=== PATIENT | male | born 1930 | race Caucasian/White ===

== ENCOUNTER 2020-03-01 13:02 | Inpatient (IN) ==
[2020-03-01] MEDS ORDERED: SODIUM CHLORIDE 0.9% 1000ML 1,000 ML IV SCH (14:00)
--- NOTE | 2020-03-01 14:17 | XRay Report ---
XR chest 1V portable CLINICAL HISTORY: weakness dyspnea COMPARISON STUDY: 02/12/2018 FINDINGS: The bones soft tissues and hemidiaphragms are normal. The cardiomediastinal silhouette is n ormal. The lungs are clear. The pulmonary vasculature is normal. Bipolar cardiac pacemaker in good po sition IMPRESSION: No acute process. ACT 112: Negative or not required by law. The above report was generated using voice recognition software. It may contain grammatical, syntax or spelling errors. Electronically signed by: Prosper Guallpa M.D. 03/01/2020 2:16 PM
[2020-03-01 14:59] LABS: Basophils # (auto) 0.03 K/uL (0-0.2); Basophils % (auto) 0.5 %; Eosinophils # (auto) 0.09 K/uL (0-0.5); Eosinophils % (auto) 1.5 %; Hemoglobin 14.5 g/dL (14.0-18.0); Immature Granulocytes # (auto) 0.01 K/uL (0.00-0.02); Immature Granulocytes % (auto) 0.2 %; Lymphocytes % (auto) 20.1 %; Mean Corpuscular Hemoglobin 32.6 pg (25-34); Mean Corpuscular Hgb Conc 34.5 g/dL (32-36); Mean Corpuscular Volume 94.4 fL (80-100); Mean Platelet Volume 9.7 fL (7.4-10.4); Monocytes # (auto) 0.54 K/uL (0.11-0.59); Neutrophils # (auto) 4.11 K/uL (1.4-6.5); Neutrophils % (auto) 68.7 %; Platelet Count 162 K/uL (130-400); RDW Coefficient of Variation 13.6 % (11.5-14.5); RDW Standard Deviation 47.2 fL (36.4-46.3); Red Blood Count 4.45 M/uL (4.7-6.1); White Blood Count 5.98 K/uL (4.8-10.8)
--- NOTE | 2020-03-01 15:13 | CT Scan Report ---
CT head/brain wo con CT DOSE: 614.27 mGy.cm HISTORY: Mental status change AMS TECHNIQUE: Multiaxial CT images of the head were performed without the use of intravenous contrast. A dose lowering technique was utilized adhering to the principles of ALARA. Comparison: None. Findings: The paranasal sinuses and mastoid air cells are clear. The calvarium findings consistent wi th age-related atrophy and considerable chronic small vessel change and skull base are intact. The ve ntricles and sulci are within normal limits. There is no mass, hematoma, midline shift, or acute infa rct. Impression: No acute intracranial abnormality. Considerable chronic small vessel change and atrophy ACT 112: Negative or not required by law. The above report was generated using voice recognition software. It may contain grammatical, syntax or spelling errors. Electronically signed by: Prosper Guallpa M.D. 03/01/2020 3:12 PM
[2020-03-01 15:16] LABS: Albumin Level 3.7 gm/dl (3.4-5.0); BUN Creatinine Ratio 21.6 (10-20); Calcium 9.1 mg/dl (8.5-10.1); Creatinine Clr Calc Pharmacy 36.5 ml/min; Est GFR (African American) 67.4; Est GFR (Non-African American) 58.1; Magnesium 2.1 mg/dl (1.8-2.4); Potassium 3.6 mmol/L (3.5-5.1)
[2020-03-01 15:27] LABS: Bilirubin,Total 0.8 mg/dl (0.2-1); Globulin 3.8 gm/dl (2.5-4.0); Thyroid Stimulating Hormone 0.927 uIu/ml (0.300-4.500); Total Protein 7.5 gm/dl (6.4-8.2); Troponin I 0.02 ng/ml (0-0.045)
--- NOTE | 2020-03-01 17:50 | Emergency Department Note ---
Impression & Plan Heart palpitations, Weakness, Acute dehydration ED Provider Note NAME: DANIELA WILLIAM AGE: 89 SEX: M ARRIVES VIA: Walk-In INFORMANT: [Patient] ED PROVIDER(S): Daniela Resendiz MD CHIEF COMPLAINT: Palpitations PLAN: Disposition: Admitted Condition: [Good] MEDICAL DECISION MAKING: Patient presented to the emergency department because of palpitations. The caregiver also notes that he has not been doing well at home. He has trouble caring for himself and there is concerns about his ability to live alone. He has been losing weight. He has incontinence of stool. The patient denies any complaints. His physical examination revealed a benign abdomen. He had no fever. He was generally weak. He was hydrated. Laboratory testing was performed. CBC was unremarkable. Chemistry panel did reveal dehydration. Troponin was negative. Patient had his pacemaker interrogated. There was no ev idence of atrial or ventricular tachycardia. It was functioning normally per [place]. [employer]. cntr[employer]. The patient had a paced rhythm on ECG without acute ischemia. He had moderate amount of PVCs noted on cardiac monitoring. Chest x-ray and head CT were negative for acute process. Given the situation further management and monitoring in the hospital was felt to be appropriate. Consultation was made with internal medicine. The patient was evaluated in ER by Dr. Esparza for further management. Triage Nursing notes reviewed and agree them. [Additional history obtained from] patient's family. Vital Signs: reviewed and remarkable for [no significant abnormalities] Differential diagnosis: Infection, dehydration, metabolic abnormality, hypo/hyperglycemia, electrolyte disturbance, anemia, hypoxia, cardiac sources, intracerebral event, toxicologic, neurologic, as well as other pathologies. ER treatment provided: Normal saline hydration Diagnostics interpreted by me: ECG: Twelve-lead ECG reveals atrial paced rhythm with a rate of [address] Normal Q RS. Normal axis. No ST elevation or depression. Cardiac Monitoring:Cardiac monitoring ordered by me: The patient was placed on continuous cardiac monitoring and observed. It revealed a normal sinus rhythm at 72 beats per minute without ectopy or evidence of dysrhythmia. Consultation(s): [none] HPI: The patient is a 89 year old male who presents to the Emergency Room with complaints of palpitations. This started over the last few days and is intermittent. The patient also notes the following associated symptoms, generally weak. He has had poor appetite. Family notes he has had weight loss. He has some stool incontinence and has difficulty caring for himself. He does live alone.. The patient has found no relieving factors. Current pain is rated as 0/10. Patient does have history of pacemaker. Pt denies LOC, headache, fevers, chills, diaphoresis, visual changes, neck pain, chest pain, breathing difficulties, nausea, vomiting, abdominal pain, back pain, melena, hematochezia, urinary symptoms, numbness, lymphadenopathy, rash, or other complaints. ROS: See above HPI for pertinent positives & negatives. A total of [10] systems reviewed and were otherwise negative. PAST MEDICAL HISTORY:[See Below] coronary disease PAST SURGICAL HISTORY:[See Below]pacemaker FAMILY HISTORY:[See Below] SOCIAL HISTORY:[See Below] lives alone HOME MEDICATIONS:[See Below] ALLERGIES:[See Below] VITALS:[See Below] PHYSICAL EXAMINATION: GENERAL: Awake, alert, tired-appearing, in no distress HENT: Normocephalic, atraumatic. Oropharynx unremarkable. EYES: Normal conjunctiva. Sclera non-icteric. NECK: Inspection normal. Non-tender. Supple. No nuchal rigidity. FROM. No masses. RESPIRATORY: Clear to auscultation. No wheezes. No rales. Normal respiratory effort. CARDIAC: Normal rate. Normal rhythm. No murmurs. No rubs. Extremities warm and well perfused. Pulses equal. No JVD. GI: Soft, non-distended. No tenderness to palpation. No rebound or guarding. No masses. RECTAL: Deferred. MUSCULOSKELETAL: Atraumatic. Generalized muscular atrophy noted. Chest examination reveals no tenderness. Pacemaker in the left upper chest. The back is symmetrical on inspection without obvious abnormality. There is no CVA tenderness to palpation. No joint edema. LOWER EXTREMITIES: Calves are equal size bilaterally and non-tender. No edema. No discoloration. NEURO: Normal sensorium. No sensory or motor deficits noted. SKIN: No rash or jaundice noted. ED COURSE: [Critical Care:] [None] Daniela Resendiz MD Past Med/Surg History Surgical History (Updated 12/21/19 @ 11:51 by Suresh West MD) History of appendectomy Status post placement of cardiac pacemaker Family History (Updated 12/21/19 @ 11:56 by Suresh West MD) Father Asthma Hypertension Heart disease Denies family history of Ovarian cancer Prostate cancer Breast cancer Colorectal cancer Social History (Updated 12/21/19 @ 11:54 by Suresh West MD) Preferred Language: Ecuadorean Communication Ability: Effective Devops Architect Required: No Beliefs That Will Affect Care: None Current Living Situation: Alone current occupational status: employed Other Information That Helps Us Care for You: No Feels Safe at Home: Yes Safety Concerns: Feels Safe At This Time Smoking Status: Never smoker Hx Alcohol Use: No Hx Substance Use: No Childhood Exposure to Second-Hand Smoke: No Allergies Allergies Allergy/AdvReac Type Severity Reaction Status Date / Time Penicillins AdvReac Unknown VOMITING Unverified 03/01/20 14:41 Home Meds Home Medications Medication Instructions Recorded Confirmed No Known Home Medications 09/10/19 03/01/20 Results & Data (ED) Vital Signs Vital Signs - 24 hr 03/01/20 13:10 03/01/20 14:51 03/01/20 15:39 Temperature 36.4 C L Temperature Source Oral Pulse Rate 62 Pulse Rate [Apical] 61 Pulse Rhythm Regular Pulse Rhythm [Apical] Regular Pulse Strength Normal Pulse Strength [Apical] Normal Respiratory Rate 16 16 Respiratory Effort / Characteristics Non-Labored Spontaneous Non-Labored Spontaneous Respiratory Depth Normal Normal Respiratory Pattern Regular Regular Blood Pressure 175/84 H Blood Pressure [Left Arm] 148/84 H Blood Pressure Mean 114 Blood Pressure Mean [Left Arm] 105 Blood Pressure Position Sitting Blood Pressure Position [Left Arm] Lying Pulse Oximetry 97 97 97 Oxygen Delivery Method Room Air Room Air Room Air Sepsis Recent Fever Within 48 Hours No Sepsis New/Unexplained Change in Mental Status No Sepsis Action Taken by Nursing No Action Required Laboratory Data Result diagrams: 03/01/20 14:48 03/01/20 14:48 Lab Results 03/01/20 03/01/20 Range/Units 14:48 14:48 WBC 5.98 (4.8-10.8) K/uL RBC 4.45 L (4.7-6.1) M/uL Hgb 14.5 (14.0-18.0) g/dL Hct 42.0 (42-52) % MCV 94.4 (80-100) fL MCH 32.6 (25-34) pg MCHC 34.5 (32-36) g/dL RDW Std Deviation 47.2 H (36.4-46.3) fL RDW Coeff of [place] 13.6 (11.5-14.5) % Plt Count 162 (130-400) K/uL MPV 9.7 (7.4-10.4) fL Immature Gran % (Auto) 0.2 % Neut % (Auto) 68.7 % Lymph % (Auto) 20.1 % [place] % (Auto) 9.0 % Eos % (Auto) 1.5 % Baso % (Auto) 0.5 % Immature Gran # (Auto) 0.01 (0.00-0.02) K/uL Neut # (Auto) 4.11 (1.4-6.5) K/uL Lymph # (Auto) 1.20 (1.2-3.4) K/uL [place] # (Auto) 0.54 (0.11-0.59) K/uL Eos # (Auto) 0.09 (0-0.5) K/uL Baso # (Auto) 0.03 (0-0.2) K/uL Sodium 140 (136-145) mmol/L Potassium 3.6 (3.5-5.1) mmol/L Chloride 103 (98-107) mmol/L Carbon Dioxide 29 (21-32) mmol/L Anion Gap 8.0 (3-11) BUN 24 H (7-18) mg/dl Creatinine 1.13 (0.6-1.4) mg/dl Est Cr Clr Drug Dosing 36.5 ml/min Est GFR ( Amer) 67.4 Est GFR (Non-Af Amer) 58.1 BUN/Creatinine Ratio 21.6 H (10-20) Glucose 108 H (70-99) mg/dl Calcium 9.1 (8.5-10.1) mg/dl Magnesium 2.1 (1.8-2.4) mg/dl Total Bilirubin 0.8 (0.2-1) mg/dl AST 20 (15-37) U/L ALT 16 (12-78) U/L Alkaline Phosphatase 100 (45-117) U/L Troponin I 0.020 (0-0.045) ng/ml Total Protein 7.5 (6.4-8.2) gm/dl Albumin 3.7 (3.4-5.0) gm/dl Globulin 3.8 (2.5-4.0) gm/dl Albumin/Globulin Ratio 1.0 (0.9-2) TSH 0.927 (0.300-4.500) uIu/ml Administered Medications Sodium Chloride (Nss 1000ml) 1,000 mls @ 125 mls/hr IV .Q8H VASQUEZ Stop: 03/01/20 21:59 Last Admin: 03/01/20 14:53 Dose: 125 mls/hr Documented by: [id number] Discharge Plan Visit Data *Final* Discharge Date/Time: 03/01/20 19:27 Chief Complaint: Illness Stated Complaint: CHEST PAIN ED Provider: Daniela Resendiz Discharge Problem: Heart palpitations, Weakness, Acute dehydration Patient Disposition: Admitted As Inpatient Discharge Instructions Interventions: ED Discharge Assessment Last Done: 03/01/20 19:27
--- NOTE | 2020-03-01 18:33 | History & Physical Report ---
Date of Service March 01, 2020 Assessment & Plan (1) Palpitations: Main reason patient came to ER today Per verbal report from ER physician no abnormal runs of atrial or ventricular tachycardia on pacemaker check. Although have not independently reviewed this report. Repeat troponin in a.m. Monitor on slot floor person for associated presyncope (2) Acute dehydration: Increased urine specific gravity. No concern of infection from UA or history. continue slow IV fluids overnight (3) Failure to thrive: Generalized weakness, weight loss, loss of appetite, gradual decline over multiple months. Discussed potential extensive work-up for these nonspecific symptoms. Unlikely we would find anything reversible and given patient's preference on not taking medications we discussed investigating the following: TSH unremarkable B12 added to morning labs CT head concerning for vascular dementia - memory not fully assessed on admission Coronary artery disease - known severe disease, will repeat echocardiogram (although patient will be for medical management regardless, he also has a murmur on exam) History of gastritis with pyloric ulcer diagnosed on CT -no significant abdominal pain today on exam but given history of this and appetite loss. Start pantoprazole and monitor improvement in appetite. Dietitian evaluation SLT assessment for oropharyngeal dysphagia Orthostatics once every shift (4) Weakness: As above PT and OT evals (5) Oropharyngeal dysphagia: SLT assessment - can eat regular diet for now as no history of aspiration PNA (6) CAD (coronary artery disease): Restart on aspirin, defer statin given generalized weakness and decline, consider low-dose metoprolol if patient not orthostatic (7) Cardiac pacemaker: Placed initially for complete heart block however per previous electrophysiology notes and current EKG appears to be atrial pacing without the need for ventricular pacing. Pacemaker check performed although I do not see the report yet in the EHR (8) Benign prostatic hyperplasia: Significantly enlarged on prior imaging with chronic outlet obstruction changes noticed with bladder. At one point he was placed to have cystoscopy with urology due to bladder thickening most common side. I suspect he did not have this done due to the cost. No blood noted on urinalysis. No significant bladder outlet obstruction symptoms noted by patient. (9) Back pain: Unclear history and duration of this but appears to be having bowel incontinence and lower extremity weakness that may be due to this x-ray lumbar spine. (10) DVT prophylaxis: No SCDs due to falls risk No acute illness and patient is ambulatory therefore will defer chemical prophylaxis at this time Admission and Anticipated Discharge Date Admission Date: March 01, 2020 History of Present Illness Chief Complaint: Palpitations, generalized fatigue Primary Care Provider: Rudy Balderas MD Adiel Ames is an 89-year-old male who presents to the ER with intermittent heart palpitations since lasting for 15-20 beats. During these episodes he has associated lightheadedness but has never fainted. He also notes lightheadedness last night on standing although this has not previously occurred prior or since. He denies any chest pain or shortness of breath on walking. He lives alone, however Adenike his power of litigation attorney (?second cousin) brings him food although given his lack of appetite he does not need the majority of this. She feels he has not been drinking enough to keep hydrated. His memory has decreased but he is still relatively sharp. Orientated x3. He is very hard of hearing but notably worse by cerumen impaction in his right ear which she has not sought medical attention for. The patient generally does not like medications (feels they do more harm than good). 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 He had severe multi-vessel disease at that time and was started on usual medication for this which apparently he took for 6 months then decided to stop On further discussion with his power of litigation attorney, Adenike. She reports he has lost significant notes amount of weight in the last 6 months. He reports decreased appetite during this time. Occasional food getting stuck in the upper part of his throat. No odynophagia. He denies any change in bowel habit, melena, blood in stool, constipation, diarrhea, nausea, vomiting. Generalized fatigue however much worse over the past 1-2 weeks. Allergies Allergy/AdvReac Type Severity Reaction Status Date / Time Penicillins AdvReac Unknown VOMITING Unverified 03/01/20 14:41 Home Medications Home Medications Medication Instructions Recorded Confirmed Type No Known Home Medications 09/10/19 03/01/20 History Past Med/Surg History Medical History (Updated 03/02/20 @ 01:58 by Schuyler Esparza MD) Complete heart block NSTEMI (non-ST elevated myocardial infarction) 02/2018 Surgical History (Updated 12/21/19 @ 11:51 by Suresh West MD) History of appendectomy Status post placement of cardiac pacemaker Family History (Updated 12/21/19 @ 11:56 by Suresh West MD) Father Asthma Hypertension Heart disease Denies family history of Ovarian cancer Prostate cancer Breast cancer Colorectal cancer Social History (Updated 12/21/19 @ 11:54 by Suresh West MD) Preferred Language: [place]i Communication Ability: Effective Oracle Database Consultant Required: No Beliefs That Will Affect Care: None Current Living Situation: Alone current occupational status: employed Other Information That Helps Us Care for You: No Feels Safe at Home: Yes Safety Concerns: Feels Safe At This Time Smoking Status: Never smoker Hx Alcohol Use: No Hx Substance Use: No Childhood Exposure to Second-Hand Smoke: No Review of Systems Constitutional: + fatigue (Generalized worse over the last 2 weeks) and + weight loss (Gradual over 6 months); no fever and no chills Eyes: no problem reported Ear, Nose, Mouth, Throat: + hearing loss (Right ear with associated fullness) Respiratory: + cough (Occasional after eating, none currently); no chest congestion, no hemoptysis and no wheezing Cardiovascular: + palpitations (As per HPI) and + lightheadedness (As per HPI); no chest pain, no chest pain with activity, no dyspnea, no dyspnea at rest, no orthopnea, no paroxysmal nocturnal dyspnea, no syncope, no edema and no claudication Gastrointestinal: + early satiety and + fecal incontinence (New over the last 6 months); no abdominal pain, no belching, no heartburn, no nausea, no vomiting, no change in bowel habits, no constipation, no blood in stools and no melena Genitourinary: + urinary incontinence (Occasional) and + nocturia (X2/night); no difficulty urinating, no urinary frequency, no urinary hesitancy, no decreased urination, no hematuria, no flank pain and no urinary urgency Musculoskeletal: + back pain (Low central back, unclear origin, duration, frequency) Integumentary: no problem reported Neurologic: + gait abnormality, + unsteadiness and + generalized weakness; no falls (No recurrent), no loss of sensation, no lack of coordination and no headache(s) Psychiatric: no problem reported Endocrine: no problem reported Hematologic / Lymphatic: no problem reported Allergy / Immunological: no problem reported Physical Exam Constitutional: well developed and + frail appearing; + not well nourished and no acute distress Eyes: PERRL, conjunctivae normal, anicteric sclerae ENMT: Ears: + hearing impairment (R > L) and + unable to visualize TM (cerumen impaction in right ear) Mouth: + dry oral mucous membranes Neck: trachea midline, no thyromegaly Respiratory: normal respiratory effort, lungs clear to auscultation Cardiovascular: Rate/Rhythm: regular rate and regular rhythm Heart Sounds: + murmur Vessels: no JVD Extremities: normal capillary refill; no calf tenderness and no edema Gastrointestinal (Abdomen): normal bowel sounds, soft, nontender, no hepatosplenomegaly Musculoskeletal: no cyanosis or clubbing, extremities motor strength 5/5 Skin: no rashes, warm and dry Neurologic: moves all extremities and awake; no focal motor deficits and not confused Motor/Sensory: no tremor, no pronator drift and no sensory deficit Cranial Nerves: PERRL, EOM intact bilaterally, able to rotate head bilaterally, able to elevate shoulders bilaterally, no nystagmus and symmetric palate elevation; + hearing impairment Psychiatric: Orientation: alert and oriented x 3 Results & Data Results & Data ([facility]) Vital Signs (Past 12 Hours) Vital Signs Temp Pulse Pulse Resp BP BP Pulse Ox 03/01/20 15:39 61 16 148/84 H 97 03/01/20 14:51 97 03/01/20 13:10 36.4 C L 62 16 175/84 H 97 Diagnostic Findings XR chest 1V portable IMPRESSION: No acute process. CT head/brain wo con Impression: No acute intracranial abnormality. Considerable chronic small vessel change and atrophy ECG Indication: palpitations Rate (beats per minute): 71 Rhythm: other (Atrial paced) Findings: + 1st degree AV block Comparison ECG Date: from (February 13, 2018) Change: the following changes noted (No longer ventricular paced) Code Status & VTE Plan Code Status DNR/DNI as per patient wishes VTE Prophylaxis Plan VTE Prophylaxis will be ordered: No Reason for no VTE drug order: Treatment not indicated Reason for no VTE mechanical prophylaxis: Treatment not indicated PG Care Time/CCT Total # of Minutes Spent Total Time Spent with Patient: Total time spent is greater than 50% in coordination of care (as documented) at patient's floor/unit and/or counseling patient: Coding Level of Care Code 86234 Initial Inpt Care Lvl 3 Diagnoses Palpitations R00.2 Acute dehydration E86.0 Failure to thrive Weakness R53.1 Oropharyngeal dysphagia R13.12 CAD (coronary artery disease) I25.10 Cardiac pacemaker Z95.0 Benign prostatic hyperplasia N40.0 Back pain M54.9 DVT prophylaxis Z29.9
[2020-03-01 19:16] LABS: Appearance Urine Clear (Clear); Bilirubin Urine Negative (Negative); Blood Urine Negative (Negative); Color Urine Dark Yellow; Glucose Urine UA Negative (Negative); Ketones Urine Trace (Negative); Leukocyte Esterase Urine Negative (Negative); Nitrite Urine Negative (Negative); Protein Urine Negative (Negative); Specific Gravity Urine 1.031 (1.000-1.030); Urobilinogen Urine Negative (Negative)
[2020-03-01] MEDS: HEPARIN SOD 5,000 UNIT/0.5 ML VIAL SQ SCH (22:09)
[2020-03-02] MEDS ORDERED: LACTATED RINGER'S 1,000 ML IV SCH (01:15)
--- NOTE | 2020-03-02 06:58 | XRay Report ---
XR lumbar spine min 4V routine HISTORY: Pain L5 central back pain COMPARISON: None. FINDINGS: There is no fracture. Mild scoliosis. Significant degenerative disc changes throughout. No evidence for compression deformity. IMPRESSION: Scoliosis. Considerable degenerative disc changes throughout. No acute process. ACT 112: Negative or not required by law. The above report was generated using voice recognition software. It may contain grammatical, syntax or spelling errors. Electronically signed by: Prosper Guallpa M.D. 03/02/2020 6:57 AM
[2020-03-02 08:06] LABS: BUN Creatinine Ratio 19.5 (10-20); Blood Urea Nitrogen 16 mg/dl (7-18); Calcium 8.5 mg/dl (8.5-10.1); Carbon Dioxide 27 mmol/L (21-32); Chloride 106 mmol/L (98-107); Creatinine Clr Calc Pharmacy 49.2 ml/min; Est GFR (African American) 91.7; Est GFR (Non-African American) 79.1; Glucose 80 mg/dl (70-99); Potassium 3.4 mmol/L (3.5-5.1); Sodium 139 mmol/L (136-145)
[2020-03-02 08:13] LABS: Troponin I < 0.015 ng/ml (0-0.045)
[2020-03-02] MEDS: HEPARIN SOD 5,000 UNIT/0.5 ML VIAL SQ SCH ×2 (08:32→20:59)
[2020-03-02] MEDS: ASPIRIN 81 MG ECTAB PO SCH (08:32)
[2020-03-02] MEDS: PANTOprazole 40 MG TAB PO SCH (08:33)
[2020-03-02] MEDS: CARBAMIDE PEROXIDE 6.5% 15 ML BTL OTR SCH ×3 (09:28→21:01)
--- NOTE | 2020-03-02 13:30 | XCELERA ---
[id number]
--- NOTE | 2020-03-02 14:24 | Electrocardiogram Report ---
Test Reason : Blood Pressure : / mmHG Vent. Rate : 071 BPM Atrial Rate : 071 BPM P-R Int : 220 ms QRS Dur : 084 ms QT Int : 392 ms P-R-T Axes : -28 -16 -54 degrees QTc Int : 425 ms Atrial-paced rhythm with prolonged AV conduction Nonspecific T wave abnormality Abnormal ECG When compared with ECG of 13-FEB-2018 11:27, Electronic atrial pacemaker has replaced Electronic ventricular pacemaker Confirmed by Frank Blankenship ([id number]) on 03/02/2020 2:24:39 PM Referred By: REFERRED SELF Confirmed By:Frank Blankenship
[2020-03-02] MEDS ORDERED: POTASSIUM CHLORIDE 10 MEQ TABCR PO STA (16:09)
--- NOTE | 2020-03-02 21:20 | Hospitalist Progress Note ---
Date of Service March 02, 2020 Assessment & Plan (1) Palpitations: Main reason patient came to ER today Per verbal report from ER physician no abnormal runs of atrial or ventricular tachycardia on pacemaker check. Although have not independently reviewed this report. trop negative. Monitor on tubing assembler for associated presyncope (2) Acute dehydration: improved after IVF. (3) Failure to thrive: Generalized weakness, weight loss, loss of appetite, gradual decline over multiple months. Discussed potential extensive work-up for these nonspecific symptoms. Unlikely we would find anything reversible and given patient's preference on not taking medications we discussed investigating the following: TSH unremarkable B12 added to morning labs CT head concerning for vascular dementia - memory not fully assessed on admission Coronary artery disease - known severe disease, will repeat echocardiogram (although patient will be for medical management regardless, he also has a murmur on exam) History of gastritis with pyloric ulcer diagnosed on CT -no significant abdominal pain today on exam but given history of this and appetite loss. Start pantoprazole and monitor improvement in appetite. Dietitian evaluation SLT assessment for oropharyngeal dysphagia Orthostatics once every shift On day 2: given that he states food gets stuck in his throat, will obtain a barium swallow, await input from speech may need a video swallow. may also consider a GI consult (4) Weakness: As above PT and OT evals (5) Oropharyngeal dysphagia: SLT assessment - can eat regular diet for now as no history of aspiration PNA (6) CAD (coronary artery disease): Restart on aspirin, defer statin given generalized weakness and decline, consider low-dose metoprolol if patient not orthostatic (7) Cardiac pacemaker: Placed initially for complete heart block however per previous electrophysiology notes and current EKG appears to be atrial pacing without the need for ventricular pacing. Pacemaker check performed although I do not see the report yet in the EHR (8) Benign prostatic hyperplasia: Significantly enlarged on prior imaging with chronic outlet obstruction changes noticed with bladder. At one point he was placed to have cystoscopy with urology due to bladder thickening most common side. I suspect he did not have this done due to the cost. No blood noted on urinalysis. No significant bladder outlet obstruction symptoms noted by patient. (9) Back pain: Unclear history and duration of this but appears to be having bowel inc ontinence and lower extremity weakness that may be due to this x-ray lumbar spine. (10) DVT prophylaxis: No SCDs due to falls risk No acute illness and patient is ambulatory therefore will defer chemical prophylaxis at this time Admission and Anticipated Discharge Date Admission Date: March 01, 2020 Subjective 89 yo male reports feeling well. He is hard of hearing. hE STATES THOUGH THT HE HAS LOST WEIGHT over the course of the past few months. He states food gts stuck on his throat. He reports he feels less weak today. Review of Systems Constitutional: + fatigue (Generalized worse over the last 2 weeks) and + weight loss (Gradual over 6 months); no fever and no chills Ear, Nose, Mouth, Throat: + hearing loss (Right ear with associated fullness) Respiratory: + cough (Occasional after eating, none currently); no chest congestion, no hemoptysis and no wheezing Cardiovascular: + palpitations (As per HPI) and + lightheadedness (As per HPI); no chest pain, no chest pain with activity, no dyspnea, no dyspnea at rest, no orthopnea, no paroxysmal nocturnal dyspnea, no syncope, no edema and no claudication Gastrointestinal: + early satiety and + fecal incontinence (New over the last 6 months); no abdominal pain, no belching, no heartburn, no nausea, no vomiting, no change in bowel habits, no constipation, no blood in stools and no melena Genitourinary: + urinary incontinence (Occasional) and + nocturia (X2/night); no difficulty urinating, no urinary frequency, no urinary hesitancy, no decreased urination, no hematuria, no flank pain and no urinary urgency Musculoskeletal: + back pain (Low central back, unclear origin, duration, frequency) Neurologic: + gait abnormality, + unsteadiness and + generalized weakness; no falls (No recurrent), no loss of sensation, no lack of coordination and no head ache(s) Physical Exam Physical Exam: Constitutional: well developed and + frail appearing; no acute distress Eyes: PERRL, conjunctivae normal, anicteric sclerae ENMT: Ears: + hearing impairment (R > L) and + unable to visualize TM (cerumen impaction in right ear) Mouth: + dry oral mucous membranes Neck: trachea midline, no thyromegaly Respiratory: normal respiratory effort, lungs clear to auscultation Cardiovascular: Rate/Rhythm: regular rate and regular rhythm Heart Sounds: + murmur Vessels: no JVD Extremities: normal capillary refill; no calf tenderness and no edema Gastrointestinal (Abdomen): normal bowel sounds, soft, nontender, no hepatosplenomegaly Musculoskeletal: no cyanosis or clubbing, extremities motor strength 5/5 Skin: no rashes, warm and dry Neurologic: moves all extremities and awake; no focal motor deficits and not confused Motor/Sensory: no tremor, no pronator drift and no sensory deficit Cranial Nerves: PERRL, EOM intact bilaterally, able to rotate head bilaterally, able to elevate shoulders bilaterally, no nystagmus and symmetric palate elevation; + hearing impairment Psychiatric: Orientation: alert and oriented x 3 Results & Data Results & Data ([facility]) Vital Signs (Past 12 Hours) Vital Signs Temp Pulse Pulse Resp BP BP Pulse Ox 03/02/20 20:14 36.7 C 66 16 146/75 H 96 03/02/20 17:27 60 03/02/20 15:42 36.6 C 60 14 144/71 H 95 03/02/20 11:59 36.8 C 60 16 119/72 94 PG Care Time/CCT Total # of Minutes Spent Total Time Spent with Patient: Total time spent is greater than 50% in coordination of care (as documented) at patient's floor/unit and/or counseling patient: Coding Level of Care Code 14635 Subseq Obs Care Lvl 3 Diagnoses Palpitations R00.2 Acute dehydration E86.0 Failure to thrive Weakness R53.1 Oropharyngeal dysphagia R13.12 CAD (coronary artery disease) I25.10 Cardiac pacemaker Z95.0 Benign prostatic hyperplasia N40.0 Back pain M54.9 DVT prophylaxis Z29.9 Time Spent (min) 35
[2020-03-03] MEDS: PANTOprazole 40 MG TAB PO SCH (08:05)
[2020-03-03] MEDS: CARBAMIDE PEROXIDE 6.5% 15 ML BTL OTR SCH ×3 (08:05→21:05)
[2020-03-03] MEDS: HEPARIN SOD 5,000 UNIT/0.5 ML VIAL SQ SCH ×2 (08:05→21:05)
[2020-03-03] MEDS: ASPIRIN 81 MG ECTAB PO SCH (08:05)
--- NOTE | 2020-03-03 11:55 | Fluoroscopy Report ---
FL barium swallow CLINICAL HISTORY: food getting stuck COMPARISON STUDY: None. FINDINGS: Total fluoroscopy time is 0.2 minutes. 9 fluoroscopic spot images submitted. The patient as pirated barium on the initial swallow. Therefore, the study was terminated. IMPRESSION: The patient aspirated barium on the initial swallow. Therefore, the study was terminated . ACT 112: Negative or not required by law. Electronically signed by: Yanick Huerta M.D. 03/03/2020 11:54 AM
--- NOTE | 2020-03-03 12:23 | Fluoroscopy Report ---
FL video swallow HISTORY: aspirated during a Barium Swallow TECHNIQUE: Video fluoroscopic evaluation of swallowing was performed in the AP and lateral projection s by the speech pathology staff. The patient is fed nectar-thick and thin liquid barium, and barium p udding. FLUOROSCOPY TIME: 2.4 minutes. A cine loop submitted. COMPARISON STUDY: None. FINDINGS: Overall poor pharyngeal constriction resulting in multiple episodes of incomplete epiglotti c deflection. This likely accounts for the multiple episodes of silent aspiration seen throughout the examination. IMPRESSION: 1. Overall, poor pharyngeal constriction resulting in multiple episodes of silent aspiration. 2. Please see the speech pathologist report for detailed findings and recommendations. ACT 112: Negative or not required by law. Electronically signed by: Yanick Huerta M.D. 03/03/2020 12:21 PM
--- NOTE | 2020-03-03 13:41 | Hospitalist Progress Note ---
Date of Service March 03, 2020 Assessment & Plan (1) Failure to thrive: Generalized weakness, weight loss, loss of appetite, gradual decline over multiple months. * TSH normal * B12 normal * Cortisol normal * CT head shows vascular dementia. - Likely due to worsening memory issues. No official dementia diagnosis, but very likely to be the case. - Psych consult for competency as his living situation is deteriorating, and he refuses further help. (2) Oropharyngeal dysphagia: SLT assessment and video swallow showed widespread aspiration. - Permissive aspiration - Continue PPI (3) Acute dehydration: Improved after IVF. Seems to be larger issue with MILAGROS Jeong reporting that his trailer doesn't have running water and he has to pump it. - Home issues as above (4) Palpitations: Main reason patient came to ER. No abnormal runs of atrial or ventricular tachycardia on pacemaker check. Trop negative. - Monitor, though patient no longer reporting this symptom to me. 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 Current EKG appears to be atrial pacing without the need for ventricular pacing. - Monitor (6) CAD (coronary artery disease): Has regularly stopped medications as he feels they do no good. - Restarted aspirin - Defer statin & beta-angel for patient preference (7) Benign prostatic hyperplasia: Significantly enlarged on prior imaging with chronic outlet obstruction changes noticed with bladder. At one point, he was planned to have cystoscopy with urology due to bladder thickening most common side. - No significant bladder outlet obstruction symptoms noted by patient. - Monitor (8) Back pain: Unclear history and duration of this but appears to be having bowel incontinence and lower extremity weakness that may be due to this. - X-ray lumbar spine on 03/01 showed "considerable degenerative disc changes throughout, but no acute process." - Monitor (9) DVT prophylaxis: Heparin 5000 units Q12h Admission and Anticipated Discharge Date Admission Date: March 01, 2020 Subjective In no distress today. Says he has no palpitations, has no other known issues. Reports no fevers/chills, chest pain, shortness of breath, abdominal pain, nausea, or vomiting. Physical Exam Constitutional: WD/WN, vitals as above Eyes: EOM intact bilaterally; no conjunctival abnormality ENMT: external ear and nose normal, oropharynx normal Neck: trachea midline, no thyromegaly normal visual inspection Respiratory: normal respiratory effort, lungs clear to auscultation no respiratory distress Cardiovascular: RRR, no murmur, no edema Gastrointestinal (Abdomen): Inspection/Auscultation: abdomen normal to inspection; abdomen not distended Musculoskeletal: no cyanosis or clubbing, extremities motor strength 5/5 Skin: no rashes, warm and dry Neurologic: moves all extremities and awake Psychiatric: Orientation: alert, oriented to person and cooperative Results & Data Results & Data ([facility]) Vital Signs (Past 12 Hours) Vital Signs Temp Pulse Pulse Resp BP BP Pulse Ox 03/03/20 11:40 36.8 C 84 18 153/92 H 93 03/03/20 08:00 64 03/03/20 07:36 36.5 C 57 L 16 161/76 H 95 03/03/20 04:54 36.6 C 60 20 137/75 94 03/03/20 02:23 63 PG Care Time/CCT Total # of Minutes Spent Total Time Spent with Patient: Total time spent is greater than 50% in coordination of care (as documented) at patient's floor/unit and/or counseling patient: Coding Level of Care Code 05915 Subseq Hosp Care Lvl 3 Diagnoses Failure to thrive Oropharyngeal dysphagia R13.12 Acute dehydration E86.0 Palpitations R00.2 Cardiac pacemaker Z95.0 CAD (coronary artery disease) I25.10 Benign prostatic hyperplasia N40.0 Back pain M54.9 DVT prophylaxis Z29.9
[2020-03-04 07:06] LABS: Hematocrit (blood only) 41.3 % (42-52); Hemoglobin 13.8 g/dL (14.0-18.0); Mean Corpuscular Hemoglobin 32.1 pg (25-34); Mean Corpuscular Hgb Conc 33.4 g/dL (32-36); Mean Platelet Volume 10.3 fL (7.4-10.4); Platelet Count 171 K/uL (130-400); RDW Coefficient of Variation 13.8 % (11.5-14.5); RDW Standard Deviation 48.6 fL (36.4-46.3)
[2020-03-04] MEDS: HEPARIN SOD 5,000 UNIT/0.5 ML VIAL SQ SCH ×2 (08:56→20:54)
[2020-03-04] MEDS: ASPIRIN 81 MG ECTAB PO SCH (08:56)
[2020-03-04] MEDS: PANTOprazole 40 MG TAB PO SCH (08:56)
[2020-03-04] MEDS: CARBAMIDE PEROXIDE 6.5% 15 ML BTL OTR SCH ×3 (08:58→20:55)
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
--- NOTE | 2020-03-04 14:34 | Hospitalist Progress Note ---
Date of Service March 04, 2020 Assessment & Plan (1) Failure to thrive: Generalized weakness, weight loss, loss of appetite, gradual decline over multiple months. * TSH normal * B12 normal * Cortisol normal * CT head shows vascular dementia. - Likely due to worsening memory issues. No official dementia diagnosis, but very likely to be the case. - Psych consulted -> They did not weigh in as he is agreeable to being placed in rehab for now. - Stable today. (2) Oropharyngeal dysphagia: SLT assessment and video swallow showed widespread aspiration. - Permissive aspiration - Continue PPI (3) Acute dehydration: Improved after IVF. Seems to be larger issue with MILAGROS Jeong reporting that his trailer doesn't have running water and he has to pump it. - Home issues as above (4) Palpitations: Main reason patient came to ER. No abnormal runs of atrial or ventricular tachycardia on pacemaker check. Trop negative. - Monitor, though patient no longer reporting this symptom to me. 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 Current EKG appears to be atrial pacing without the need for ventricular pacing. - Monitor (6) CAD (coronary artery disease): Has regularly stopped medications as he feels they do no good. - Restarted aspirin - Defer statin & beta-angel for patient preference (7) Benign prostatic hyperplasia: Significantly enlarged on prior imaging with chronic outlet obstruction changes noticed with bladder. At one point, he was planned to have cystoscopy with urology due to bladder thickening most common side. - No significant bladder outlet obstruction symptoms noted by patient. - Monitor (8) Back pain: Unclear history and duration of this but appears to be having bowel inc ontinence and lower extremity weakness that may be due to this. - X-ray lumbar spine on 03/01 showed "considerable degenerative disc changes throughout, but no acute process." - Monitor (9) DVT prophylaxis: Heparin 5000 units Q12h Admission and Anticipated Discharge Date Admission Date: March 03, 2020 Subjective No complaints today. He is fairly vague when asked about any concerns at home, and doesn't really state that he has any issues with safety, but cannot also give any plans for what he will do at home for safety. Reports no fevers/chills, chest pain, shortness of breath, abdominal pain, nausea, or vomiting. Physical Exam Constitutional: WD/WN, vitals as above Eyes: EOM intact bilaterally; no conjunctival abnormality ENMT: external ear and nose normal, oropharynx normal Neck: trachea midline, no thyromegaly normal visual inspection Respiratory: normal respiratory effort, lungs clear to auscultation no respiratory distress Cardiovascular: RRR, no murmur, no edema Gastrointestinal (Abdomen): Inspection/Auscultation: abdomen normal to inspection; abdomen not distended Musculoskeletal: no cyanosis or clubbing, extremities motor strength 5/5 Skin: no rashes, warm and dry Neurologic: moves all extremities and awake Psychiatric: Orientation: alert, oriented to person and cooperative Results & Data Results & Data ([facility]) Vital Signs (Past 12 Hours) Vital Signs Temp Pulse Pulse Pulse Resp BP BP 03/04/20 11:30 36.4 C L 68 20 136/89 03/04/20 09:00 60 03/04/20 07:19 36.3 C L 60 18 160/74 H 03/04/20 02:59 36.3 C L 60 18 156/82 H Pulse Ox 03/04/20 11:30 98 03/04/20 09:00 03/04/20 07:19 98 03/04/20 02:59 95 PG Care Time/CCT Total # of Minutes Spent Total Time Spent with Patient: Total time spent is greater than 50% in coordination of care (as documented) at patient's floor/unit and/or counseling patient: Coding Level of Care Code 79874 Subseq Hosp Care Lvl 2 Diagnoses Failure to thrive Oropharyngeal dysphagia R13.12 Acute dehydration E86.0 Palpitations R00.2 Cardiac pacemaker Z95.0 CAD (coronary artery disease) I25.10 Benign prostatic hyperplasia N40.0 Back pain M54.9 DVT prophylaxis Z29.9
[2020-03-05] MEDS: PANTOprazole 40 MG TAB PO SCH (08:27)
[2020-03-05] MEDS: ASPIRIN 81 MG ECTAB PO SCH (08:27)
[2020-03-05] MEDS: HEPARIN SOD 5,000 UNIT/0.5 ML VIAL SQ SCH ×2 (08:28→20:33)
[2020-03-05] MEDS: CARBAMIDE PEROXIDE 6.5% 15 ML BTL OTR SCH ×3 (08:28→20:33)
--- NOTE | 2020-03-05 17:46 | Hospitalist Progress Note ---
Date of Service March 05, 2020 Assessment & Plan (1) Failure to thrive: Generalized weakness, weight loss, loss of appetite, gradual decline over multiple months. * TSH normal * B12 normal * Cortisol normal * CT head shows vascular dementia. - Likely due to worsening memory issues. No official dementia diagnosis, but very likely to be the case. - Psych consulted -> They did not weigh in as he is agreeable to being placed in rehab for now. - Stable today. Still very pleasant and no agitation or concerns about going home today. (2) Oropharyngeal dysphagia: SLT assessment and video swallow showed widespread aspiration. - Permissive aspiration - Continue PPI (3) Acute dehydration: Improved after IVF. Seems to be larger issue with MILAGROS Jeong reporting that his trailer doesn't have running water and he has to pump it. - Home issues as above (4) Palpitations: Main reason patient came to ER. No abnormal runs of atrial or ventricular tachycardia on pacemaker check. Trop negative. - Monitor, though patient no longer reporting this symptom to me. 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 Current EKG appears to be atrial pacing without the need for ventricular pacing. - Monitor (6) CAD (coronary artery disease): Has regularly stopped medications as he feels they do no good. - Restarted aspirin - Defer statin & beta-angel for patient preference (7) Benign prostatic hyperplasia: Significantly enlarged on prior imaging with chronic outlet obstruction changes noticed with bladder. At one point, he was planned to have cystoscopy with urology due to bladder thickening most common side. - No significant bladder outlet obstruction symptoms noted by patient. - Monitor (8) Back pain: Unclear history and duration of this but appears to be having bowel incontinence and lower extremity weakness that may be due to this. - X-ray lumbar spine on 03/01 showed "considerable degenerative disc changes throughout, but no acute process." - Monitor (9) DVT prophylaxis: Heparin 5000 units Q12h Admission and Anticipated Discharge Date Admission Date: March 03, 2020 Subjective No complaints today. Feeling ok with no chest pain. Reports no fevers/chills, chest pain, shortness of breath, abdominal pain, nausea, or vomiting. Physical Exam Constitutional: WD/WN, vitals as above Eyes: EOM intact bilaterally; no conjunctival abnormality ENMT: external ear and nose normal, oropharynx normal Neck: trachea midline, no thyromegaly normal visual inspection Respiratory: normal respiratory effort, lungs clear to auscultation no respiratory distress Cardiovascular: RRR, no murmur, no edema Gastrointestinal (Abdomen): Inspection/Auscultation: abdomen normal to inspection; abdomen not distended Musculoskeletal: no cyanosis or clubbing, extremities motor strength 5/5 Skin: no rashes, warm and dry Neurologic: moves all extremities and awake Psychiatric: Orientation: alert, oriented to person and cooperative Results & Data Results & Data ([facility]) Vital Signs (Past 12 Hours) Vital Signs Temp Pulse Pulse Resp BP BP Pulse Ox 03/05/20 15:08 36.3 C L 64 20 146/75 H 94 03/05/20 14:49 65 03/05/20 11:45 36.4 C L 68 16 111/67 92 03/05/20 07:23 60 03/05/20 07:15 36.4 C L 60 20 132/77 94 PG Care Time/CCT Total # of Minutes Spent Total Time Spent with Patient: Total time spent is greater than 50% in coordination of care (as documented) at patient's floor/unit and/or counseling patient: Coding Level of Care Code 16788 Subseq Hosp Care Lvl 2 Diagnoses Failure to thrive Oropharyngeal dysphagia R13.12 Acute dehydration E86.0 Palpitations R00.2 Cardiac pacemaker Z95.0 CAD (coronary artery disease) I25.10 Benign prostatic hyperplasia N40.0 Back pain M54.9 DVT prophylaxis Z29.9
[2020-03-06] MEDS: PANTOprazole 40 MG TAB PO SCH (08:56)
[2020-03-06] MEDS: ASPIRIN 81 MG ECTAB PO SCH (08:56)
[2020-03-06] MEDS: HEPARIN SOD 5,000 UNIT/0.5 ML VIAL SQ SCH ×2 (08:56→20:50)
--- NOTE | 2020-03-06 15:40 | Hospitalist Progress Note ---
Date of Service March 06, 2020 Assessment & Plan (1) Failure to thrive: Generalized weakness, weight loss, loss of appetite, gradual decline over multiple months. * TSH normal * B12 normal * Cortisol normal * CT head shows vascular dementia. - Likely due to worsening memory issues. No official dementia diagnosis, but very likely to be the case. - Psych consulted -> They did not weigh in as he is agreeable to being placed in rehab for now. - Stable today. Still very pleasant and no agitation. Still somewhat tired and sleeps much of the day. (2) Oropharyngeal dysphagia: SLT assessment and video swallow showed widespread aspiration. - Permissive aspiration - Continue PPI (3) Acute dehydration: Improved after IVF. Seems to be larger issue with MILAGROS Jeong reporting that his trailer doesn't have running water and he has to pump it. - Home issues as above (4) Palpitations: Main reason patient came to ER. No abnormal runs of atrial or ventricular tachycardia on pacemaker check. Trop negative. - Monitor, though patient no longer reporting this symptom to me. 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 Current EKG appears to be atrial pacing without the need for ventricular pacing. - Monitor (6) CAD (coronary artery disease): Has regularly stopped medications as he feels they do no good. - Restarted aspirin - Defer statin & beta-angel for patient preference (7) Benign prostatic hyperplasia: Significantly enlarged on prior imaging with chronic outlet obstruction changes noticed with bladder. At one point, he was planned to have cystoscopy with urology due to bladder thickening most common side. - No significant bladder outlet obstruction symptoms noted by patient. - Monitor (8) Back pain: Unclear history and duration of this but appears to be having bowel incontinence and lower extremity weakness that may be due to this. - X-ray lumbar spine on 03/01 showed "considerable degenerative disc changes throughout, but no acute process." - Monitor (9) DVT prophylaxis: Heparin 5000 units Q12h Admission and Anticipated Discharge Date Admission Date: March 03, 2020 Subjective No complaints today. No major concerns overall. He is not cleaning himself much overnight per nursing. Reports no fevers/chills, chest pain, shortness of breath, abdominal pain, nausea, or vomiting. Physical Exam Constitutional: WD/WN, vitals as above Eyes: EOM intact bilaterally; no conjunctival abnormality ENMT: external ear and nose normal, oropharynx normal Neck: trachea midline, no thyromegaly normal visual inspection Respiratory: normal respiratory effort, lungs clear to auscultation no respiratory distress Cardiovascular: RRR, no murmur, no edema Gastrointestinal (Abdomen): Inspection/Auscultation: abdomen normal to inspection; abdomen not distended Musculoskeletal: no cyanosis or clubbing, extremities motor strength 5/5 Skin: no rashes, warm and dry Neurologic: moves all extremities and awake Psychiatric: Orientation: alert, oriented to person and cooperative Results & Data Results & Data ([facility]) Vital Signs (Past 12 Hours) Vital Signs Temp Pulse Resp BP Pulse Ox 03/06/20 11:40 36.6 C 69 18 129/79 93 03/06/20 07:14 36.6 C 60 16 153/72 H 96 03/06/20 04:13 36.2 C L 69 16 162/77 H 94 PG Care Time/CCT Total # of Minutes Spent Total Time Spent with Patient: Total time spent is greater than 50% in coordination of care (as documented) at patient's floor/unit and/or counseling patient: Coding Level of Care Code 71038 Subseq Hosp Care Lvl 1 Diagnoses Failure to thrive Oropharyngeal dysphagia R13.12 Acute dehydration E86.0 Palpitations R00.2 Cardiac pacemaker Z95.0 CAD (coronary artery disease) I25.10 Benign prostatic hyperplasia N40.0 Back pain M54.9 DVT prophylaxis Z29.9
[2020-03-07] MEDS: ASPIRIN 81 MG ECTAB PO SCH (07:53)
[2020-03-07] MEDS: HEPARIN SOD 5,000 UNIT/0.5 ML VIAL SQ SCH (07:53)
[2020-03-07] MEDS: PANTOprazole 40 MG TAB PO SCH (07:54)
--- NOTE | 2020-03-07 16:35 | Discharge Summary ---
Date of Service March 07, 2020 Admission HPI Per Admitting Provider Adiel Ames is an 89-year-old male who presents to the ER with intermittent heart palpitations since lasting for 15-20 beats. During these episodes he has associated lightheadedness but has never fainted. He also notes lightheadedness last night on standing although this has not previously occurred prior or since. He denies any chest pain or shortness of breath on walking. He lives alone, however Adenike his power of title attorney (?second cousin) brings him food although given his lack of appetite he does not need the majority of this. She feels he has not been drinking enough to keep hydrated. His memory has decreased but he is still relatively sharp. Orientated x3. He is very hard of hearing but notably worse by cerumen impaction in his right ear which she has not sought medical attention for. The patient generally does not like medications (feels they do more harm than good). 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 He had severe multi-vessel disease at that time and was started on usual medication for this which apparently he took for 6 months then decided to stop On further discussion with his power of title attorney, Adenike. She reports he has lost significant notes amount of weight in the last 6 months. He reports decreased appetite during this time. Occasional food getting stuck in the upper part of his throat. No odynophagia. He denies any change in bowel habit, melena, blood in stool, constipation, diarrhea, nausea, vomiting. Generalized fatigue however much worse over the past 1-2 weeks. Principal Diagnosis Failure to thrive from dementia Discharge Exam Constitutional WD/WN, vitals as above Eyes EOM intact bilaterally; no conjunctival abnormality ENMT external ear and nose normal, oropharynx normal Neck trachea midline, no thyromegaly normal visual inspection Respiratory normal respiratory effort, lungs clear to auscultation no respiratory distress Cardiovascular RRR, no murmur, no edema Gastrointestinal (Abdomen) Inspection/Auscultation: abdomen normal to inspection; abdomen not distended Musculoskeletal no cyanosis or clubbing, extremities motor strength 5/5 Skin no rashes, warm and dry Neurologic moves all extremities and awake Psychiatric Orientation: alert, oriented to person and cooperative Discharge Data Allergies Allergy/AdvReac Type Severity Reaction Status Date / Time Penicillins AdvReac Unknown VOMITING Unverified 03/01/20 14:41 Consultations 03/01/20 18:36 ED Decision to Admit Stat 03/03/20 13:31 Consult Psychiatry Routine Ordered Studies 03/01/20 14:20 CT head/brain wo con Stat 03/03/20 FL barium swallow Routine 03/03/20 10:57 FL video swallow Routine Hospital Course (1) Failure to thrive: Generalized weakness, weight loss, loss of appetite, gradual decline over multiple months. * TSH normal * B12 normal * Cortisol normal * CT head shows vascular dementia. - Likely due to worsening memory issues. No official dementia diagnosis, but very likely to be the case. - Psych consulted -> They did not weigh in as he is agreeable to being placed in rehab for now. - Stable today. Still very pleasant and no agitation. Still somewhat tired and sleeps much of the day. (2) Oropharyngeal dysphagia: SLT assessment and video swallow showed widespread aspiration. - Permissive aspiration - Continue PPI (3) Acute dehydration: Improved after IVF. Seems to be larger issue with MILAGROS Jeong reporting that his trailer doesn't have running water and he has to pump it. - Home issues as above (4) Palpitations: Main reason patient came to ER. No abnormal runs of atrial or ventricular tachycardia on pacemaker check. Trop negative. - Monitor, though patient no longer reporting this symptom to me. 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 Current EKG appears to be atrial pacing without the need for ventricular pacing. - Monitor (6) CAD (coronary artery disease): Has regularly stopped medications as he feels they do no good. - Restarted aspirin - Defer statin & beta-angel for patient preference (7) Benign prostatic hyperplasia: Significantly enlarged on prior imaging with chronic outlet obstruction changes noticed with bladder. At one point, he was planned to have cystoscopy with urology due to bladder thickening most common side. - No significant bladder outlet obstruction symptoms noted by patient. - Monitor (8) Back pain: Unclear history and duration of this but appears to be having bowel incontinence and lower extremity weakness that may be due to this. - X-ray lumbar spine on 03/01 showed "considerable degenerative disc changes throughout, but no acute process." - Monitor (9) DVT prophylaxis: Heparin 5000 units Q12h Total Time Total Time Spent Total Time Spent (In Minutes): 35 Discharge Plan Discharge Items Patient Disposition: Transfer [facility] Reason For Visit: PALPITATIONS,FAILURE TO THRIVE, GENERALIZED FATIGU Discharge Diagnosis: Failure to thrive Activity: Resume your previous activity Non-emergency contact: Primary Care Provider and Compacting Machine Operator/Tender Call non-emergency contact if: your symptoms worsen Follow-up/Referrals: Rudy Balderas MD [Primary Care Provider] - Diet: Heart Healthy Addtl Attending Provider Instructions: Admitted with palpitations. Nothing seen on the pacemaker or on heart monitor. MILAGROSAdenike had major concerns about his home safety because he has no running water and had frequent accidents. Pending Studies at Discharge: No Stand-Alone Forms: [facility] Skilled Items Patient informed of condition?: Yes DNR: Yes Discharge Level of Care: Skilled Communicable Disease: No Discharge Prognosis: Stable Lines: None Urinary Catheter: No Medications and DC Order Prescriptions: New aspirin 81 mg Tablet,Delayed Release (Dr/Ec) 81 mg PO QAM Qty: 1 RF: 0 pantoprazole 40 mg Tablet,Delayed Release (Dr/Ec) 40 mg PO QAM Qty: 1 RF: 0 Discharge Orders: Discharge Order (Routine); Ordered 03/07/20 Ordered By: Jose Ramon Paul Admission Data Admit Date/Time: 03/03/20 13:31 Attending Provider: Jose Ramon Paul Admit Provider: Schuyler Esparza Primary Care Provider: Rudy Balderas Other Providers: Jose Ramon Paul ; Schuyler Esparza ; Lisa Ellis Other Interventions: Discharge Summary Assessment (RN) Last Done: 03/07/20 12:49 DC Date/Time DO NOT enter until pt leaves facility: 03/07/20 13:03 Coding Level of Care Code D/C Day Management >30 mins Diagnoses Failure to thrive Oropharyngeal dysphagia R13.12 Acute dehydration E86.0 Palpitations R00.2 Cardiac pacemaker Z95.0 CAD (coronary artery disease) I25.10 Benign prostatic hyperplasia N40.0 Back pain M54.9 DVT prophylaxis Z29.9
== END 2020-03-07 13:03 | DRG 641 ==
LOC: ED 13:02 → 2N 13:02 → SUATTDRO 19:02 → 2N 19:27

== ENCOUNTER 2020-08-14 11:49 | Inpatient (IN) ==
--- NOTE | 2020-08-14 12:06 | Emergency Department Note ---
Impression & Plan Sepsis, Acute respiratory failure with hypoxia, Aspiration pneumonia, Acute renal insufficiency, Cardiac pacemaker ED Provider Note NAME: DANIELA WILLIAM AGE: 89 SEX: M ARRIVES VIA: Ambulance INFORMANT: Patient, ED PROVIDER(S): Isaac Plunkett MD CHIEF COMPLAINT: Respiratory distress PLAN: Disposition: Admit MEDICAL DECISION MAKING: The patient is a 89-year-old gentleman who presents emergency department from his personal snf with acute respiratory failure, vomiting, fevers that evolved quickly since last night. He was found to be confused and altered in the setting of his symptoms. Of note, the patient resides at his personal snf after being admitted to the hospital in February at which time he was living by himself in his trailer but transitioned due to failure to thrive in that setting. Note, the patient is was DNR on his last admission and I did confirm with his POAAdenike that she understands that the patient's wishes would be to be DNR and DNI. However, she does agree with admission and treatment otherwise. I did explain to her over the phone my concern for his critical condition and illness with respiratory failure that is suspected to be related to aspiration given his history of this. On arrival the patient is in acute respiratory distress with labored breathing, tachypnea with respiratory rate in the 30s, tachycardia with heart rate in the 120s-160s in the setting of the patient's retching. He is febrile to 39. Oxygen saturation is 89% on room air improving to 96% with oxy-mask. EKG demonstrates sinus tachycardia with slightly depressed ST depressions in the precordial anterior leads however no overt ST elevation. Chest x-ray with interstitial thickening that is suspicious for pneumonia particularly aspiration given the patient's presentation. WBC 17.9 neutrophil predominance suggestive of infection given the patient's febrile presentation and respiratory failure and supports aspiration. VBG is unremarkable. Initial lactate is 3.7 with repeat improved to 2.7 following IVF hydration. Chemistry without acidosis. Cr. 1.5 c/w clinically dry appearance. Total bilirubin 1.4 and DB 0.4, nonspecific. AST and ALT wnl. AP 121. Troponin negative/undetectable. Lipase is not elevated. Procalcitonin is elevated at 1.6. Covid19/Flu/RSV PCR negative. Patient was treated empirically for sepsis on arrival with Zosyn and Vancomycin. Upon re-evaluation patient was gradually improved after initial resuscitation with HR improved to 70s and RR to low 20s. Patient and Adenike (MILAGROS) agree with admission. Case was discussed with ANMOL Holman PAC, with Dr. Matt COREA ospitalist who will evaluate the patient for admission. Triage Nursing notes reviewed and agree them. Additional history obtained from MILAGROS Jeong. Prior medical records reviewed Vital Signs: reviewed and remarkable for hypoxia. Differential diagnosis: Sepsis, UTI, pneumonia, metabolic, electrolyte abnormalities, cardiac sources, intracerebral event, toxicologic, neurologic, as well as other pathologies. ER treatment provided: See below. Diagnostics interpreted by me: ECG: Sinus tachycardia, 118 bpm, no ectopy, ST segments slightly depressed anteriorly. No overt ST elevation. Cardiac Monitoring: An order for continuous cardiac monitoring was placed and demonstrated Sinus tachycardia, 118 bpm, no ectopy Laboratory studies: See below Imaging studies: XR chest 1V portable CLINICAL HISTORY: SEPSIS COMPARISON STUDY: 03/01/2020 FINDINGS: The cardiac and mediastinal contours remain stable. There is a left subclavian dual-chamber central venous pacemaker. There is aortic tortuosity. There is no lobar consolidation. There is no failure. There are no pleural effusions. There is mild interstitial thickening similar to the prior study and likely chronic[ IMPRESSION: 1. Subtle interstitial thickening, likely chronic, although a subtle acute interstitial infectious/inflammatory process cannot be excluded with certainty. No evidence of lobar consolidation. No evidence of overt failure. Consultation(s): Case was discussed with ANMOL Holman PAC, with Dr. Matt COREA hospitalist who will evaluate the patient for admission. HPI: The patient is a 89-year-old gentleman who presents emergency department from his personal snf with acute respiratory failure, vomiting, fevers that evolved quickly since last night. He was found to be confused and altered in the setting of his symptoms. Of note, the patient resides at his personal snf after being admitted to the hospital in February at which time he was living by himself in his trailer but transitioned due to failure to thrive in t hat setting. Note, the patient is was DNR on his last admission and I did confirm with his POAAdenike that she understands that the patient's wishes would be to be DNR and DNI. However, she does agree with admission and treatment otherwise. I did explain to her over the phone my concern for his critical condition and illness with respiratory failure that suspected to be related to aspiration as he has a history of this. ROS: See above HPI for pertinent positives & negatives. A total of 10 systems reviewed and were otherwise negative. PAST MEDICAL HISTORY:See Below PAST SURGICAL HISTORY:See Below FAMILY HISTORY:See Below SOCIAL HISTORY:See Below HOME MEDICATIONS:See Below ALLERGIES:See Below VITALS:See Below PHYSICAL EXAMINATION: GENERAL: Awake, alert, cachectic, ill-appearing, in severe respiratory distress HENT: Normocephalic, atraumatic. Oropharynx with dry mucous membranes and otherwise unremarkable. EYES: Normal conjunctiva. Sclera non-icteric. EOMI. No nystamgus. PEARRL. NECK: Supple. No nuchal rigidity. FROM. No JVD. RESPIRATORY: Scattered wheezes and rhonchi. CARDIAC: Tachycardic rate, normal rhythm. Extremities warm and well perfused. Pulses equal. ABDOMEN: Soft, non-distended. No tenderness to palpation. No rebound or guarding . No masses. RECTAL: Deferred. MUSCULOSKELETAL: Chest examination reveals no tenderness. The back is symmetrical on inspection without obvious abnormality. There is no CVA tenderness to palpation. No joint edema. LOWER EXTREMITIES: Calves are equal size bilaterally and non-tender. No edema. No discoloration. NEURO: Normal sensorium. No sensory or motor deficits noted. SKIN: No rash or jaundice noted. ED COURSE: Critical Care: I have personally spent greater than 75 minutes of critical care time in the direct management of this patient. This includes bedside care, interpretation of diagnostic studies, and testing, discussion with consultants, patient, and family members, and other required patient management activities. This 75 minutes is in excess of all separately billable procedures. Isaac Plunkett MD Past Med/Surg History Medical History (Updated 08/14/20 @ 22:07 by Isaac Plunkett MD) Complete heart block NSTEMI (non-ST elevated myocardial infarction) 02/2018 Surgical History History of appendectomy Status post placement of cardiac pacemaker Family History Father Asthma Hypertension Heart disease Denies family history of Ovarian cancer Prostate cancer Breast cancer Colorectal cancer Social History Smoking Status: Never smoker Second Hand Exposure: No; Do You Dip or Chew Tobacco: No; Tobacco Cessation Education Requested by Patient: No Hx Alcohol Use: No Hx Substance Use: No Preferred Language: Mongolian Communication Ability: Effective Windsurfing Instructor Required: No Beliefs That Will Affect Care: None marital status: Single Current Living Situation: [facility] Current Living Situation Comment: Living at [facility] current occupational status: employed Other Information That Helps Us Care for You: No Feels Safe at Home: Yes Safety Concerns: Feels Safe At This Time Childhood Exposure to Second-Hand Smoke: No Assistive Devices: Oxygen - Continuous Allergies Allergies Allergy/AdvReac Type Severity Reaction Status Date / Time Penicillins AdvReac Unknown VOMITING Unverified 08/14/20 15:05 Home Meds Previous Rx's Medication Instructions Recorded aspirin 81 mg PO QAM #1 tab 03/07/20 Gold Bro Lotion #1 ea 03/20/20 carbamide peroxide 6.5 % ear drops 5 drops OT .COMPLEX 4 Days #15 ml 03/20/20 psyllium husk 3.4 gram/5.4 gram 1 tbs PO DAILY #660 gm 03/24/20 oral powder pantoprazole 40 mg tablet,delayed 40 mg PO QAM #30 tab 07/08/20 release eluxadoline 100 mg tablet 100 mg PO BID #60 tab 07/29/20 Results & Data (ED) Vital Signs Vital Signs - 24 hr 08/14/20 11:58 08/14/20 12:19 08/14/20 12:39 Temperature 39 C H Temperature Source Oral Pulse Rate 115 H 115 H Pulse Rate [Right Radial] Pulse Rate from SpO2 Sensor 121 H Pulse Rhythm Respiratory Rate 32 H 34 H Respiratory Effort / Characteristics Blood Pressure 181/92 H 136/65 Blood Pressure Mean 121 108 Pulse Oximetry 89 L 88 L Oxygen Delivery Method Room Air Nasal Cannula Nasal Cannula Oxygen Flow Rate 2 4 Sepsis Recent Fever Within 48 Hours Yes Sepsis New/Unexplained Change in Mental Status Yes Sepsis Action Taken by Nursing Physician Notified 08/14/20 12:50 08/14/20 12:53 08/14/20 13:00 Temperature Temperature Source Pulse Rate 107 H 114 H Pulse Rate [Right Radial] Pulse Rate from SpO2 Sensor 107 H 115 H Pulse Rhythm Respiratory Rate 29 H 37 H 35 H Respiratory Effort / Characteristics Short of Breath Blood Pressure 135/76 129/97 Blood Pressure Mean 93 111 Pulse Oximetry 96 96 97 Oxygen Delivery Method Oxymask Oxymask Oxymask Oxygen Flow Rate 7 7 7 Sepsis Recent Fever Within 48 Hours Sepsis New/Unexplained Change in Mental Status Sepsis Action Taken by Nursing 08/14/20 13:16 08/14/20 13:18 08/14/20 13:30 Temperature Temperature Source Pulse Rate 100 H 103 H 80 Pulse Rate [Right Radial] Pulse Rate from SpO2 Sensor 101 H 74 Pulse Rhythm Regular Respiratory Rate 39 H 30 H 36 H Respiratory Effort / Characteristics Blood Pressure 82/45 L 76/47 L Blood Pressure Mean 58 53 Pulse Oximetry 96 96 98 Oxygen Delivery Method Oxymask Oxymask Oxymask Oxygen Flow Rate 7 7 7 Sepsis Recent Fever Within 48 Hours Sepsis New/Unexplained Change in Mental Status Sepsis Action Taken by Nursing 08/14/20 13:45 08/14/20 14:16 08/14/20 14:30 Temperature Temperature Source Pulse Rate 77 75 72 Pulse Rate [Right Radial] Pulse Rate from SpO2 Sensor 84 73 71 Pulse Rhythm Respiratory Rate 32 H 31 H 25 H Respiratory Effort / Characteristics Blood Pressure 83/53 L 118/69 149/66 H Blood Pressure Mean 60 84 119 Pulse Oximetry 99 100 99 Oxygen Delivery Method Oxymask Oxymask Oxymask Oxygen Flow Rate 7 7 7 Sepsis Recent Fever Within 48 Hours Sepsis New/Unexplained Change in Mental Status Sepsis Action Taken by Nursing 08/14/20 14:40 08/14/20 15:00 08/14/20 15:14 Temperature 37.0 C Temperature Source Oral Pulse Rate 75 74 Pulse Rate [Right Radial] 70 Pulse Rate from SpO2 Sensor 68 Pulse Rhythm Respiratory Rate 29 H 23 22 Respiratory Effort / Characteristics Spontaneous Blood Pressure 90/55 L 113/58 L Blood Pressure Mean 66 68 Pulse Oximetry 97 100 97 Oxygen Delivery Method Oxymask Oxymask Oxymask Oxygen Flow Rate 7 7 7 Sepsis Recent Fever Within 48 Hours Sepsis New/Unexplained Change in Mental Status Sepsis Action Taken by Nursing 08/14/20 15:15 Temperature Temperature Source Pulse Rate 72 Pulse Rate [Right Radial] Pulse Rate from SpO2 Sensor Pulse Rhythm Respiratory Rate 24 Respiratory Effort / Characteristics Blood Pressure 103/59 L Blood Pressure Mean 70 Pulse Oximetry 100 Oxygen Delivery Method Oxymask Oxygen Flow Rate 7 Sepsis Recent Fever Within 48 Hours Sepsis New/Unexplained Change in Mental Status Sepsis Action Taken by Nursing Laboratory Data Result diagrams: 08/14/20 12:56 08/14/20 14:17 Lab Results 08/14/20 1208/14/20 Range/Units 12:37 12:37 12:56 WBC 17.99 H (4.8-10.8) K/uL RBC 4.49 L (4.7-6.1) M/uL Hgb 14.4 (14.0-18.0) g/dL Hct 42.3 (42-52) % MCV 94.2 (80-100) fL MCH 32.1 (25-34) pg MCHC 34.0 (32-36) g/dL RDW Std Deviation 48.0 H (36.4-46.3) fL RDW Coeff of Katlin 14.0 (11.5-14.5) % Plt Count 183 (130-400) K/uL MPV 11.0 H (7.4-10.4) fL Immature Gran % (Auto) 0.3 % Neut % (Auto) 91.3 % Lymph % (Auto) 5.9 % Labette % (Auto) 2.4 % Eos % (Auto) 0.0 % Baso % (Auto) 0.1 % Neut # (Auto) 16.41 H (1.4-6.5) K/uL Lymph # (Auto) 1.07 L (1.2-3.4) K/uL [place] # (Auto) 0.44 (0.11-0.59) K/uL Eos # (Auto) 0.00 (0-0.5) K/uL Baso # (Auto) 0.02 (0-0.2) K/uL Immature Gran # (Auto) 0.05 H (0.00-0.02) K/uL PT (9.0-12.0) Seconds INR (0.9-1.1) APTT (21.0-31.0) Seconds PTT Ratio VBG pH (7.36-7.41) VBG pCO2 (38-50) mmHg VBG pO2 mmHg VBG HCO3 mmol/L VBG O2 Saturation % VBG Base Excess mEq/L Barometric Pressure mm/Hg Sodium (136-145) mmol/L Potassium (3.5-5.1) mmol/L Chloride (98-107) mmol/L Carbon Dioxide (21-32) mmol/L Anion Gap (3-11) BUN (7-18) mg/dl Creatinine (0.6-1.4) mg/dl Est Cr Clr Drug Dosing Est GFR ( Amer) Est GFR (Non-Af Amer) BUN/Creatinine Ratio (10-20) Glucose (70-99) mg/dl Lactate (0.4-2.0) mmol/L Calcium (8.5-10.1) mg/dl Phosphorus (2.5-4.9) mg/dl Magnesium (1.8-2.4) mg/dl Total Bilirubin (0.2-1) mg/dl Direct Bilirubin (0-0.2) mg/dl AST (15-37) U/L ALT (12-78) U/L Alkaline Phosphatase (45-117) U/L Troponin I (0-0.045) ng/ml Total Protein (6.4-8.2) gm/dl Albumin (3.4-5.0) gm/dl Globulin (2.5-4.0) gm/dl Albumin/Globulin Ratio (0.9-2) Lipase (73-393) U/L Procalcitonin TSH (0.300-4.500) uIu/ml COVID-19 Eval Order [facility]FluRsv at [facility] COVID-19 PCR NEGATIVE (Negative) Influenza Type A (PCR) Negative (Neg) Influenza Type B (PCR) Negative (Neg) RSV (RT-PCR) Negative (Neg) 08/14/20 08/14/20 08/14/20 Range/Units 12:56 12:56 12:56 WBC (4.8-10.8) K/uL RBC (4.7-6.1) M/uL Hgb (14.0-18.0) g/dL Hct (42-52) % MCV (80-100) fL MCH (25-34) pg MCHC (32-36) g/dL RDW Std Deviation (36.4-46.3) fL RDW Coeff of Katlin (11.5-14.5) % Plt Count (130-400) K/uL MPV (7.4-10.4) fL Immature Gran % (Auto) % Neut % (Auto) % Lymph % (Auto) % Labette % (Auto) % Eos % (Auto) % Baso % (Auto) % Neut # (Auto) (1.4-6.5) K/uL Lymph # (Auto) (1.2-3.4) K/uL Labette # (Auto) (0.11-0.59) K/uL Eos # (Auto) (0-0.5) K/uL Baso # (Auto) (0-0.2) K/uL Immature Gran # (Auto) (0.00-0.02) K/uL PT 13.0 H (9.0-12.0) Seconds INR 1.2 H (0.9-1.1) APTT 23.7 (21.0-31.0) Seconds PTT Ratio 0.8 VBG pH (7.36-7.41) VBG pCO2 (38-50) mmHg VBG pO2 mmHg VBG HCO3 mmol/L VBG O2 Saturation % VBG Base Excess mEq/L Barometric Pressure mm/Hg Sodium 136 (136-145) mmol/L Potassium (3.5-5.1) mmol/L Chloride 101 (98-107) mmol/L Carbon Dioxide 26 (21-32) mmol/L Anion Gap 9.0 (3-11) BUN 28 H (7-18) mg/dl Creatinine 1.52 H (0.6-1.4) mg/dl Est Cr Clr Drug Dosing Not Reportable Est GFR ( Amer) 46.7 Est GFR (Non-Af Amer) 40.3 BUN/Creatinine Ratio 18.1 (10-20) Glucose 116 H (70-99) mg/dl Lactate 3.7 H* (0.4-2.0) mmol/L Calcium 9.7 (8.5-10.1) mg/dl Phosphorus 3.3 (2.5-4.9) mg/dl Magnesium (1.8-2.4) mg/dl Total Bilirubin 1.4 H (0.2-1) mg/dl Direct Bilirubin (0-0.2) mg/dl AST (15-37) U/L ALT 20 (12-78) U/L Alkaline Phosphatase 121 H (45-117) U/L Troponin I < 0.015 (0-0.045) ng/ml Total Protein 7.9 (6.4-8.2) gm/dl Albumin 3.5 (3.4-5.0) gm/dl Globulin 4.4 H (2.5-4.0) gm/dl Albumin/Globulin Ratio 0.8 L (0.9-2) Lipase 50 L (73-393) U/L Procalcitonin TSH 0.881 (0.300-4.500) uIu/ml COVID-19 Eval Order COVID-19 PCR (Negative) Influenza Type A (PCR) (Neg) Influenza Type B (PCR) (Neg) RSV (RT-PCR) (Neg) 08/14/20 08/14/20 08/14/20 Range/Units 12:56 12:56 14:17 WBC (4.8-10.8) K/uL RBC (4.7-6.1) M/uL Hgb (14.0-18.0) g/dL Hct (42-52) % MCV (80-100) fL MCH (25-34) pg MCHC (32-36) g/dL RDW Std Deviation (36.4-46.3) fL RDW Coeff of Katlin (11.5-14.5) % Plt Count (130-400) K/uL MPV (7.4-10.4) fL Immature Gran % (Auto) % Neut % (Auto) % Lymph % (Auto) % [place] % (Auto) % Eos % (Auto) % Baso % (Auto) % Neut # (Auto) (1.4-6.5) K/uL Lymph # (Auto) (1.2-3.4) K/uL Labette # (Auto) (0.11-0.59) K/uL Eos # (Auto) (0-0.5) K/uL Baso # (Auto) (0-0.2) K/uL Immature Gran # (Auto) (0.00-0.02) K/uL PT (9.0-12.0) Seconds INR (0.9-1.1) APTT (21.0-31.0) Seconds PTT Ratio VBG pH 7.36 (7.36-7.41) VBG pCO2 45 (38-50) mmHg VBG pO2 26 mmHg VBG HCO3 25 mmol/L VBG O2 Saturation < 60.0 % VBG Base Excess -1.0 mEq/L Barometric Pressure 738.3 mm/Hg Sodium (136-145) mmol/L Potassium 4.2 (3.5-5.1) mmol/L Chloride (98-107) mmol/L Carbon Dioxide (21-32) mmol/L Anion Gap (3-11) BUN (7-18) mg/dl Creatinine (0.6-1.4) mg/dl Est Cr Clr Drug Dosing Est GFR ( Amer) Est GFR (Non-Af Amer) BUN/Creatinine Ratio (10-20) Glucose (70-99) mg/dl Lactate (0.4-2.0) mmol/L Calcium (8.5-10.1) mg/dl Phosphorus (2.5-4.9) mg/dl Magnesium 1.8 (1.8-2.4) mg/dl Total Bilirubin (0.2-1) mg/dl Direct Bilirubin 0.4 H (0-0.2) mg/dl AST 20 (15-37) U/L ALT (12-78) U/L Alkaline Phosphatase (45-117) U/L Troponin I (0-0.045) ng/ml Total Protein (6.4-8.2) gm/dl Albumin (3.4-5.0) gm/dl Globulin (2.5-4.0) gm/dl Albumin/Globulin Ratio (0.9-2) Lipase (73-393) U/L Procalcitonin Cancelled TSH (0.300-4.500) uIu/ml COVID-19 Eval Order COVID-19 PCR (Negative) Influenza Type A (PCR) (Neg) Influenza Type B (PCR) (Neg) RSV (RT-PCR) (Neg) 08/14/20 08/14/20 Range/Units 14:17 14:40 WBC (4.8-10.8) K/uL RBC (4.7-6.1) M/uL Hgb (14.0-18.0) g/dL Hct (42-52) % MCV (80-100) fL MCH (25-34) pg MCHC (32-36) g/dL RDW Std Deviation (36.4-46.3) fL RDW Coeff of [place]lin (11.5-14.5) % Plt Count (130-400) K/uL MPV (7.4-10.4) fL Immature Gran % (Auto) % Neut % (Auto) % Lymph % (Auto) % [place] % (Auto) % Eos % (Auto) % Baso % (Auto) % Neut # (Auto) (1.4-6.5) K/uL Lymph # (Auto) (1.2-3.4) K/uL Labette # (Auto) (0.11-0.59) K/uL Eos # (Auto) (0-0.5) K/uL Baso # (Auto) (0-0.2) K/uL Immature Gran # (Auto) (0.00-0.02) K/uL PT (9.0-12.0) Seconds INR (0.9-1.1) APTT (21.0-31.0) Seconds PTT Ratio VBG pH (7.36-7.41) VBG pCO2 (38-50) mmHg VBG pO2 mmHg VBG HCO3 mmol/L VBG O2 Saturation % VBG Base Excess mEq/L Barometric Pressure mm/Hg Sodium (136-145) mmol/L Potassium (3.5-5.1) mmol/L Chloride (98-107) mmol/L Carbon Dioxide (21-32) mmol/L Anion Gap (3-11) BUN (7-18) mg/dl Creatinine (0.6-1.4) mg/dl Est Cr Clr Drug Dosing Est GFR ( Amer) Est GFR (Non-Af Amer) BUN/Creatinine Ratio (10-20) Glucose (70-99) mg/dl Lactate 2.7 H* (0.4-2.0) mmol/L Calcium (8.5-10.1) mg/dl Phosphorus (2.5-4.9) mg/dl Magnesium (1.8-2.4) mg/dl Total Bilirubin (0.2-1) mg/dl Direct Bilirubin (0-0.2) mg/dl AST (15-37) U/L ALT (12-78) U/L Alkaline Phosphatase (45-117) U/L Troponin I (0-0.045) ng/ml Total Protein (6.4-8.2) gm/dl Albumin (3.4-5.0) gm/dl Globulin (2.5-4.0) gm/dl Albumin/Globulin Ratio (0.9-2) Lipase (73-393) U/L Procalcitonin 1.66 H TSH (0.300-4.500) uIu/ml COVID-19 Eval Order COVID-19 PCR (Negative) Influenza Type A (PCR) (Neg) Influenza Type B (PCR) (Neg) RSV (RT-PCR) (Neg) Administered Medications Albuterol (Albut/Ipratrop 3mg/0.5mg Neb 3 Ml Vial) 3 ml NEB QIDR [facility]ASQUEZ Stop: 09/13/20 18:59 Last Admin: 08/14/20 19:19 Dose: Not Given Documented by: [id number] Heparin Sodium (Porcine) (Heparin Sod 5,000 Unit/0.5 Ml Vial) 5,000 units SQ Q12 [facility] Stop: 09/13/20 20:59 Last Admin: 08/14/20 20:14 Dose: 5,000 units Documented by: [id number] Sodium Chloride (Nss 1000ml) 1,000 mls @ 100 mls/hr IV .Q10H [facility] Stop: 09/13/20 17:21 Last Admin: 08/14/20 18:21 Dose: 100 mls/hr Documented by: [id number] Piperacillin Sod/Tazobactam (Sod 3.375 gm/ Dextrose) 115 mls @ 28.75 mls/hr IV Q8H [facility]; Protocol Stop: 08/21/20 17:21 Last Admin: 08/14/20 18:21 Dose: 28.8 mls/hr Documented by: [id number] Discontinued Medications Albuterol (Albut/Ipratrop 3mg/0.5mg Neb 3 Ml Vial) 3 ml NEB NOW STA Stop: 08/14/20 14:28 Last Admin: 08/14/20 15:14 Dose: 3 ml Documented by: [id number] Dexamethasone (Dexamethasone Sod Inj 10 Mg/Ml Vial) 10 mg IV NOW ONE Stop: 08/14/20 12:23 Last Admin: 08/14/20 12:55 Dose: 10 mg Documented by: [id number] Acetaminophen (Ofirmev) 1,000 mg in 100 mls @ 400 mls/hr IV NOW STA Stop: 08/14/20 12:34 Last Infusion: 08/14/20 13:11 Dose: 0 mls/hr Documented by: [id number] Admin: 08/14/20 12:53 Dose: 400 mls/hr Documented by: [id number] Piperacillin Sod/Tazobactam Sod (Zosyn) 4.5 gm in 120 mls @ 240 mls/hr IV NOW ONE Stop: 08/14/20 12:51 Last Infusion: 08/14/20 13:29 Dose: 0 mls/hr Documented by: [id number] Admin: 08/14/20 12:58 Dose: 240 mls/hr Documented by: [id number] Vancomycin HCl 1,250 mg/ (Sodium Chloride) 525 mls @ 200 mls/hr IV NOW ONE Stop: 08/14/20 14:59 Last Infusion: 08/14/20 15:37 Dose: 0 mls/hr Documented by: [id number] Admin: 08/14/20 12:59 Dose: 200 mls/hr Documented by: [id number] Famotidine (Pepcid 20mg Iv Push) 20 mg in 5 mls @ 2.5 mls/min IV NOW STA Stop: 08/14/20 12:23 Last Admin: 08/14/20 12:58 Dose: 2.5 mls/min Documented by: [id number] Prochlorperazine (Compazine) 1 mls @ 1 mls/min IV ONE ONE Stop: 08/14/20 12:23 Last Admin: 08/14/20 12:55 Dose: 1 mls/min Documented by: [id number] Sodium Chloride (Nss 1000ml) 1,000 mls @ 999 mls/hr IV .Q1H1M [facility] Stop: 08/14/20 13:23 Last Infusion: 08/14/20 14:07 Dose: 0 mls/hr Documented by: [id number] Admin: 08/14/20 12:59 Dose: 999 mls/hr Documented by: [id number] Sodium Chloride (Nss 1000ml) 1,000 mls @ 999 mls/hr IV .Q1H1M [facility] Stop: 08/14/20 14:23 Last Infusion: 08/14/20 14:07 Dose: 0 mls/hr Documented by: [id number] Admin: 08/14/20 12:59 Dose: 999 mls/hr Documented by: [id number] Discharge Plan Visit Data Chief Complaint: Altered Mental Status Stated Complaint: Neuro symptoms LKW last night ED Provider: Isaac Plunkett Discharge Problem: Sepsis, Acute respiratory failure with hypoxia, Aspiration pneumonia, Acute renal insufficiency, Cardiac pacemaker Patient Disposition: Admitted As Inpatient Discharge Instructions Interventions: ED Discharge Assessment Last Done: 08/14/20 16:06 Discharge Problem: Sepsis Qualifiers: Sepsis type: sepsis due to unspecified organism Sepsis acute organ dysfunction status: with acute organ dysfunction Severe sepsis acute organ dysfunction type: acute respiratory failure Acute respiratory failure type: with hypoxia Severe sepsis shock status: without septic shock Qualified Code(s): A41.9 - Sepsis, unspecified organism Aspiration pneumonia Qualifiers: Aspiration pneumonia type: unspecified Laterality: bilateral Lung location: unspecified part of lung Qualified Code(s): J69.0 - Pneumonitis due to inhalation of food and vomit
[2020-08-14] MEDS ORDERED: ACETAMINOPHEN 1,000 MG/100 ML VIAL IV STA (12:20)
[2020-08-14] MEDS ORDERED: VANCOMYCIN CONSULT ACTIVE PRN (12:22)
[2020-08-14] MEDS ORDERED: FAMOTIDINE 20MG IV PUSH 20 MG/5 ML SYR IV STA (12:22)
[2020-08-14] MEDS ORDERED: PROCHLORPERAZINE 1 ML IV ONE (12:22)
[2020-08-14] MEDS ORDERED: PIPERACILLIN/TAZOBACTAM 4.5 GM/120 ML BAG IV ONE (12:22)
[2020-08-14] MEDS ORDERED: VANCOMYCIN HCL 1,250 MG in SODIUM CHLORIDE 0.9% 500 ML IV ONE (12:22)
[2020-08-14] MEDS ORDERED: DEXAMETHASONE SOD INJ 10 MG/ML VIAL IV ONE (12:22)
[2020-08-14] MEDS ORDERED: PIPERACILL/TAZOBAC CONSULT ACTIVE PRN (12:22)
[2020-08-14] MEDS ORDERED: SODIUM CHLORIDE 0.9% 1000ML 1,000 ML IV SCH ×2 (12:30→13:23)
[2020-08-14 13:10] LABS: Basophils # (auto) 0.02 K/uL (0-0.2); Basophils % (auto) 0.1 %; HCO3 VBG 25 mmol/L; Hematocrit (blood only) 42.3 % (42-52); Hemoglobin 14.4 g/dL (14.0-18.0); Immature Granulocytes # (auto) 0.05 K/uL (0.00-0.02); Immature Granulocytes % (auto) 0.3 %; Lymphocytes # (auto) 1.07 K/uL (1.2-3.4); Lymphocytes % (auto) 5.9 %; Mean Corpuscular Hemoglobin 32.1 pg (25-34); Mean Corpuscular Volume 94.2 fL (80-100); Monocytes # (auto) 0.44 K/uL (0.11-0.59); Monocytes % (auto) 2.4 %; Neutrophils # (auto) 16.41 K/uL (1.4-6.5); Neutrophils % (auto) 91.3 %; PCO2 VBG 45 mmHg (38-50); PO2 VBG 26 mmHg; Platelet Count 183 K/uL (130-400); Red Blood Count 4.49 M/uL (4.7-6.1); White Blood Count 17.99 K/uL (4.8-10.8); pH VBG 7.36 (7.36-7.41)
[2020-08-14 13:16] LABS: Oxygen Saturation VBG < 60.0 %
--- NOTE | 2020-08-14 13:23 | XRay Report ---
XR chest 1V portable CLINICAL HISTORY: SEPSIS COMPARISON STUDY: 03/01/2020 FINDINGS: The cardiac and mediastinal contours remain stable. There is a left subclavian dual-chamber central venous pacemaker. There is aortic tortuosity. There is no lobar consolidation. There is no f ailure. There are no pleural effusions. There is mild interstitial thickening similar to the prior st udy and likely chronic[ IMPRESSION: 1. Subtle interstitial thickening, likely chronic, although a subtle acute interstitial infectious/in flammatory process cannot be excluded with certainty. No evidence of lobar consolidation. No evidence of overt failure. ACT 112: Negative or not required by law. Electronically signed by: Ismael Salguero M.D. 08/14/2020 1:22 PM
[2020-08-14 13:24] LABS: INR 1.2 (0.9-1.1); Partial Thromboplastin Ratio 0.8; Partial Thromboplastin Time 23.7 Seconds (21.0-31.0)
[2020-08-14 13:45] LABS: Influenza A virus by PCR Negative (Neg); Influenza B virus by PCR Negative (Neg); RSV by PCR Negative (Neg); SARS CoV2 RNA(COVID-19) InHosp NEGATIVE (Negative)
[2020-08-14 13:50] LABS: Alanine Aminotransferase 20 U/L (12-78); Albumin Globulin Ratio 0.8 (0.9-2); Albumin Level 3.5 gm/dl (3.4-5.0); Alkaline Phosphatase 121 U/L (45-117); BUN Creatinine Ratio 18.1 (10-20); Bilirubin,Total 1.4 mg/dl (0.2-1); Blood Urea Nitrogen 28 mg/dl (7-18); Calcium 9.7 mg/dl (8.5-10.1); Carbon Dioxide 26 mmol/L (21-32); Chloride 101 mmol/L (98-107); Est GFR (African American) 46.7; Est GFR (Non-African American) 40.3; Globulin 4.4 gm/dl (2.5-4.0); Glucose 116 mg/dl (70-99); Lipase 50 U/L (73-393); Phosphorus 3.3 mg/dl (2.5-4.9); Sodium 136 mmol/L (136-145); Thyroid Stimulating Hormone 0.881 uIu/ml (0.300-4.500); Total Protein 7.9 gm/dl (6.4-8.2); Troponin I < 0.015 ng/ml (0-0.045)
[2020-08-14] MEDS ORDERED: ALBUT/IPRATROP 3MG/0.5MG NEB 3 ML VIAL NEB STA (14:27)
[2020-08-14 14:42] LABS: Potassium 4.2 mmol/L (3.5-5.1)
[2020-08-14 14:47] LABS: Bilirubin Direct 0.4 mg/dl (0-0.2); Magnesium 1.8 mg/dl (1.8-2.4)
--- NOTE | 2020-08-14 15:20 | History & Physical Report ---
Date of Service August 14, 2020 Assessment & Plan (1) Sepsis: Admit telemetry Possibly secondary to aspiration pneumonia as patient has a history of aspiration and also had vomiting last evening. CXR showing subtle interstitial thickening chronic vs acute inflammatory process. No consolidation or failure. Patient is hypotensive, requiring 7L oxymask, respers are improving but were in the 30s on admission. Lactic was 3.7, 2.7 on recheck. Leukocytosis 17.9. Procalcitonin 1.66 Will continue Zosyn and Vanc started in ED - patient has adverse reaction of vomiting to pcn but looks like he tolerated noon dose ok. NPO for now. Discharge in February reports a video swallow was obtained showing widespread aspiration. Initial EKG with some st depressions in the anterolateral leads which have resolved on repeat with improvement in heart rate. Initial troponin was negative NSS @ 100 ml/hr follow blood cultures CBC, CMP am (2) Acute respiratory failure with hypoxia: Likely secondary to aspiration as above Continue to titrate O2 Duonebs (3) CAD (coronary artery disease): Continue ASA when taking po (4) Cardiac pacemaker: noted (5) SANTY (acute kidney injury): Creat 1.5 on admission, baseline 1.17 NSS @ 100 ml (6) Elevated bilirubin: Bili 1.4, direct bili 0.4, alk phos also elevated at 121 Abdominal exam benign Will obtain US galbladder (7) DVT prophylaxis: heparin subq History of Present Illness Primary Care Provider: SHRUTHI Farias Mr. Ames presents with sepsis possibly secondary to an aspiration even of which he has a history. He is unable to give me much of a history, cannot tell me where he is. Per the ED he came in from his [facility] with acute respiratory failure, vomiting, fevers that have evolved rapidly. Patient denies any discomfort though he is coughing during my exam and some questions he did not respond to, unclear whether he was having trouble hearing me or just didn't want to/couldn't answer my question. Denies aches, chills, chest pain, dyspnea, n/v/d, abdominal pain Pmhx: per outpatient notes: history of dysphagia, cardiac pacemaker, NSTEMI with third degree heart block in 2018, CAD, BPH Social: from personal prison Family: non contributory due to advanced age Allergies Allergy/AdvReac Type Severity Reaction Status Date / Time Penicillins AdvReac Unknown VOMITING Unverified 08/14/20 15:05 Home Medications Medication Instructions Recorded Confirmed Type aspirin 81 mg PO QAM #1 tab 03/07/20 08/14/20 Rx Gold Bro Lotion #1 ea 03/20/20 07/21/20 Rx carbamide peroxide 6.5 % ear drops 5 drops OT .COMPLEX 4 Days #15 ml 03/20/20 08/14/20 Rx psyllium husk 3.4 gram/5.4 gram 1 tbs PO DAILY #660 gm 03/24/20 08/14/20 Rx oral powder pantoprazole 40 mg tablet,delayed 40 mg PO QAM #30 tab 07/08/20 08/14/20 Rx release eluxadoline 100 mg tablet 100 mg PO BID #60 tab 07/29/20 08/14/20 Rx Past Med/Surg History Medical History (Updated 08/14/20 @ 15:37 by SHRUTHI Lester) Complete heart block NSTEMI (non-ST elevated myocardial infarction) 02/2018 Surgical History History of appendectomy Status post placement of cardiac pacemaker Family History Father Asthma Hypertension Heart disease Denies family history of Ovarian cancer Prostate cancer Breast cancer Colorectal cancer Social History Smoking Status: Unknown if ever smoked Hx Alcohol Use: No Hx Substance Use: No Preferred Language: Swedish Communication Ability: Effective Muck Operator Required: No Beliefs That Will Affect Care: Holiness (but does not attend a specific mormonism at this time) marital status: Single Current Living Situation: Alone current occupational status: employed Feels Safe at Home: Yes Childhood Exposure to Second-Hand Smoke: No Assistive Devices: Glasses Review of Systems Review of Systems: All systems reviewed & are unremarkable except as noted in HPI & below Physical Exam Physical Exam: General: no distress Eyes: normal inspection, PERLL Respiratory: chest non tender, clear to auscultation, normal breath sounds, no respiratory distress, no accessory muscle use Cardiac: regular rate and rhythm, no rub or gallop, no murmur, no edema, no jvd GI/: active bowel sounds, no abd pain or tenderness, soft, non distended Extremities: normal range of motion, normal strength, non tender Neuro:oriented to person, moves all extremities Psych: alert, normal mood and affect Skin: normal color, dry Results & Data Results & Data ([facility]) Vital Signs (Past 12 Hours) Vital Signs Temp Pulse Pulse Resp BP Pulse Ox 08/14/20 15:14 70 22 97 08/14/20 14:40 37.0 C 75 29 H 90/55 L 97 08/14/20 14:30 72 25 H 149/66 H 99 08/14/20 14:16 75 31 H 118/69 100 08/14/20 13:45 77 32 H 83/53 L 99 08/14/20 13:30 80 36 H 76/47 L 98 08/14/20 13:18 103 H 30 H 96 08/14/20 13:16 100 H 39 H 82/45 L 96 08/14/20 13:00 114 H 35 H 129/97 97 08/14/20 12:53 107 H 37 H 135/76 96 08/14/20 12:50 29 H 96 08/14/20 12:39 115 H 34 H 136/65 88 L 08/14/20 11:58 39 C H 115 H 32 H 181/92 H 89 L Code Status & VTE Plan VTE Prophylaxis Plan VTE Prophylaxis will be ordered: Yes Supervising Physician Co-Signing Physician Notes Patient was seen and examined independently I discussed the case with Analy Payton [employer] I reviewed pertinent past medical social family history and also the plan of care and agree with the plan of care. 89-year-old male number [facility] with respiratory failure and a history of chronic aspiration with metabolic encephalopathy on arrival. Patient presents with signs of possible sepsis with a leukocytosis elevated lactic acid hypoxic febrile and tachypneic. He is rate related EKG changes with resolved with rate control after his volume resuscitated. Obvious concerns for aspiration pneumonia although initial chest x-ray shows only subtle changes. Will explore other causes he did have viral pneumonitis and pneumonia ruled out including COVID-19 at the time of admission pending ultrasound the abdomen to rule out gallbladder disease although initial LFTs are not significantly suggestive Patient replaced on Zosyn therapy since EKG did reverse likely has some demand ischemia we will not pursue further diagnostic testing Physically he is pleasantly demented he is in no obvious distress when I saw him his lungs have some basilar crackles on the right otherwise are clear his cardiac exam is regular with a systolic murmur his abdomen normoactive bowel sounds soft and nontender his extremities without edema Any exceptions will be noted below PG Care Time/CCT Total # of Minutes Spent Total Time Spent with Patient: Total time spent is greater than 50% in coordination of care (as documented) at patient's floor/unit and/or counseling patient: Coding Level of Care Code 19371 Initial Inpt Care Lvl 3 Diagnoses Sepsis A41.9 Acute respiratory failure with hypoxia J96.01 CAD (coronary artery disease) I25.10 Cardiac pacemaker Z95.0 SANTY (acute kidney injury) N17.9 Elevated bilirubin R17 DVT prophylaxis Z29.9
--- NOTE | 2020-08-14 16:03 | Electrocardiogram Report ---
Test Reason : Blood Pressure : / mmHG Vent. Rate : 070 BPM Atrial Rate : 070 BPM P-R Int : 200 ms QRS Dur : 080 ms QT Int : 422 ms P-R-T Axes : 050 -09 006 degrees QTc Int : 455 ms Normal sinus rhythm When compared with ECG of 14-AUG-2020 12:05, (unconfirmed) Vent. rate has decreased BY [address] no longer depressed in Anterolateral leads Nonspecific T wave abnormality now evident in Inferior leads Nonspecific T wave abnormality no longer evident in Lateral leads Confirmed by Sam Saunders ([id number]) on 08/14/2020 4:02:31 PM Referred By: REFERRED SELF Confirmed By:Lane Saunders
--- NOTE | 2020-08-14 16:06 | Electrocardiogram Report ---
Test Reason : Blood Pressure : / mmHG Vent. Rate : 118 BPM Atrial Rate : 118 BPM P-R Int : 206 ms QRS Dur : 068 ms QT Int : 268 ms P-R-T Axes : 051 -34 088 degrees QTc Int : 375 ms Sinus tachycardia Possible Left atrial enlargement Left axis deviation Possible old inferior AL Nonspecific ST abnormality Abnormal ECG Confirmed by Sam Saunders ([id number]) on 08/14/2020 4:05:57 PM Referred By: REFERRED SELF Confirmed By:Lane Saunders
[2020-08-14] MEDS ORDERED: VANCOMYCIN HCL 1,000 MG in SODIUM CHLORIDE 0.9% 250 ML IV SCH (17:22)
[2020-08-14] MEDS ORDERED: ONDANSETRON INJ 2 MG/ML 2 ML VIAL IV PRN (17:22)
[2020-08-14 17:26] LABS: Appearance Urine Cloudy (Clear); Bacteria Urine Automated 4+ (Negative); Bilirubin Urine Negative (Negative); Blood Urine Trace (Negative); Color Urine Yellow; Glucose Urine UA Negative (Negative); Ketones Urine Trace (Negative); Leukocyte Esterase Urine 1+ (Negative); Nitrite Urine Positive (Negative); RBC Urine Automated 0-4 /hpf (0-4); Specific Gravity Urine 1.031 (1.000-1.030); Urobilinogen Urine Negative (Negative); WBC Urine Automated >30 /hpf (0-5); pH Urine 8.5 (4.5-7.5)
[2020-08-14 17:35] LABS: Protein Urine 2+ (Negative); Sulfosalicylic Acid Urine Positive (Negative)
[2020-08-14 17:57] LABS: Amorphous Sediment Urine Present (None Prsent); Triple Phosphate Crystal Urine Present (None Prsent)
[2020-08-14 17:58] LABS: Mucus Urine Present (None Prsent)
--- NOTE | 2020-08-14 18:18 | Pharmacy Report ---
Pharmacy Abx Dose Short Note - Date of Service August 14, 2020 - Assessment & Plan Assessment 89 year old M receiving Zosyn/vancomycin for treatment of aspiration pneumonia Day # 1 of antimicrobial therapy. Plan Vancomycin * Patient has slightly kidney injury. * Population pharmacokinetics suggest half-life of 23 hours with elimination constant of 0.03 hr-1 * recheck creatinine tomorrow morning to assess true function and redose from there. Pharmacy will continue to follow and will adjust dose/frequency as necessary. Thank you.
[2020-08-14] MEDS: SODIUM CHLORIDE 0.9% 1000ML 1,000 ML IV SCH (18:21)
[2020-08-14] MEDS: PIPERACILLIN/TAZOBACTAM 3.375 GM in DEXTROSE 5% 100 ML IV SCH (18:21)
[2020-08-14] MEDS: ALBUT/IPRATROP 3MG/0.5MG NEB 3 ML VIAL NEB SCH (19:19)
--- NOTE | 2020-08-14 19:26 | Ultrasound Report ---
US gallbladder CLINICAL HISTORY: elevated bili, vomiting COMPARISON STUDY: CT scan performed February 2018 FINDINGS: The pancreas was not visualized. The liver appears sonographically normal. There is gallbla dder distention. No calculi are visualized. The technologist reports a negative sonographic [place]. The common bile duct measured 4 mm. There was no right-sided hydronephrosis. IMPRESSION: 1. Distended gallbladder. No calculi identified 2. No evidence of ductal dilatation 3. Nondiagnostic evaluation the pancreas ACT 112: Negative or not required by law. Electronically signed by: Ismael Salguero M.D. 08/14/2020 7:25 PM
[2020-08-14] MEDS: HEPARIN SOD 5,000 UNIT/0.5 ML VIAL SQ SCH (20:14)
[2020-08-15] MEDS: SODIUM CHLORIDE 0.9% 1000ML 1,000 ML IV SCH ×3 (03:21→16:20)
[2020-08-15] MEDS: PIPERACILLIN/TAZOBACTAM 3.375 GM in DEXTROSE 5% 100 ML IV SCH ×3 (03:21→20:01)
--- NOTE | 2020-08-15 07:48 | Hospitalist Progress Note ---
Date of Service August 15, 2020 Assessment & Plan (1) Sepsis: resolved Possibly secondary to aspiration pneumonia as patient has a history of aspiration CXR showing subtle interstitial thickening chronic vs acute inflammatory process. No consolidation or failure. Lactic was 3.7, 2.7 on recheck. Leukocytosis 17.9. Procalcitonin 1.66 dramatically improved Will continue Zosyn and stop Vanc negative nasal swab Discharge in February reports a video swallow was obtained showing widespread a spiration. Initial EKG with some st depressions in the anterolateral leads which have resolved on repeat with improvement in heart rate. Initial troponin was negative (2) Acute respiratory failure with hypoxia: Likely secondary to aspiration as above Continue to titrate O2 , improving Duonebs (3) CAD (coronary artery disease): Continue ASA (4) Cardiac pacemaker: noted (5) SANTY (acute kidney injury): Creat 1.5 on admission, baseline 1.17, improved to 1.3 NSS @ 100 ml (6) Elevated bilirubin: Bili 1.4, direct bili 0.4, alk phos also elevated at 121, improved Abdominal exam benign normal US galbladder (7) DVT prophylaxis: heparin subq Admission and Anticipated Discharge Date Admission Date: August 14, 2020 Results & Data Results & Data ([facility]) Vital Signs (Past 12 Hours) Vital Signs Temp Pulse Resp BP Pulse Ox 08/15/20 07:09 98.2 F 79 20 128/70 95 08/15/20 03:55 97.5 F L 62 18 111/67 92 08/14/20 23:50 97.3 F L 52 L 18 123/76 92 PG Care Time/CCT Total # of Minutes Spent Total Time Spent with Patient: Total time spent is greater than 50% in coordination of care (as documented) at patient's floor/unit and/or counseling patient: Coding Level of Care Code 10364 Subseq Hosp Care Lvl 3 Diagnoses Sepsis A41.9 Acute respiratory failure with hypoxia J96.01 CAD (coronary artery disease) I25.10 Cardiac pacemaker Z95.0 SANTY (acute kidney injury) N17.9 Elevated bilirubin R17 DVT prophylaxis Z29.9
[2020-08-15 08:09] LABS: Hematocrit (blood only) 39.6 % (42-52); Hemoglobin 13.2 g/dL (14.0-18.0); Mean Corpuscular Hemoglobin 31.7 pg (25-34); Mean Corpuscular Hgb Conc 33.3 g/dL (32-36); Mean Platelet Volume 10.2 fL (7.4-10.4); Platelet Count 136 K/uL (130-400); RDW Coefficient of Variation 14.2 % (11.5-14.5); RDW Standard Deviation 49.3 fL (36.4-46.3); Red Blood Count 4.17 M/uL (4.7-6.1); White Blood Count 13.61 K/uL (4.8-10.8)
[2020-08-15] MEDS: ALBUT/IPRATROP 3MG/0.5MG NEB 3 ML VIAL NEB SCH ×3 (08:19→15:26)
[2020-08-15 08:39] LABS: Albumin Level 2.8 gm/dl (3.4-5.0); BUN Creatinine Ratio 18.9 (10-20); Calcium 9.6 mg/dl (8.5-10.1); Creatinine Clr Calc Pharmacy 32.4 ml/min; Est GFR (African American) 55.4; Est GFR (Non-African American) 47.8; Potassium 4.3 mmol/L (3.5-5.1)
[2020-08-15] MEDS: HEPARIN SOD 5,000 UNIT/0.5 ML VIAL SQ SCH ×2 (08:39→23:38)
[2020-08-15 08:42] LABS: Albumin Globulin Ratio 0.7 (0.9-2); Globulin 4.3 gm/dl (2.5-4.0); Total Protein 7.1 gm/dl (6.4-8.2)
[2020-08-15] MEDS ORDERED: VANCOMYCIN HCL 1,250 MG in SODIUM CHLORIDE 0.9% 250 ML IV ONE (09:00)
[2020-08-15] MEDS ORDERED: ALBUT/IPRATROP 3MG/0.5MG NEB 3 ML VIAL NEB PRN (17:29)
[2020-08-16] MEDS ORDERED: HALOPERIDOL LACTATE 5 MG/ML 1 ML VIAL IM STA (01:58)
[2020-08-16] MEDS ORDERED: LORazepam 1 MG TAB PO STA (01:58)
[2020-08-16] MEDS: PIPERACILLIN/TAZOBACTAM 3.375 GM in DEXTROSE 5% 100 ML IV SCH ×3 (03:34→18:57)
[2020-08-16] MEDS: SODIUM CHLORIDE 0.9% 1000ML 1,000 ML IV SCH ×2 (03:38→22:28)
[2020-08-16] MEDS ORDERED: VANCOMYCIN HCL 1,250 MG in SODIUM CHLORIDE 0.9% 250 ML IV SCH (06:00)
[2020-08-16] MEDS ORDERED: VANCOMYCIN HCL 1,000 MG in SODIUM CHLORIDE 0.9% 250 ML IV SCH (06:00)
[2020-08-16] MEDS: PANTOprazole 40 MG TAB PO SCH (09:00)
[2020-08-16] MEDS: HEPARIN SOD 5,000 UNIT/0.5 ML VIAL SQ SCH ×2 (09:00→20:49)
[2020-08-16] MEDS: PSYLLIUM 58.6% POWDER PACKET PO SCH (09:00)
[2020-08-16] MEDS: ASPIRIN 81 MG ECTAB PO SCH (09:00)
--- NOTE | 2020-08-16 17:34 | Hospitalist Progress Note ---
Date of Service August 16, 2020 Assessment & Plan (1) Sepsis: resolved Possibly secondary to aspiration pneumonia as patient has a history of aspiration CXR showing subtle interstitial thickening chronic vs acute inflammatory process. No consolidation or failure. Lactic was 3.7, 2.7 on recheck. Leukocytosis 17.9. Procalcitonin 1.66 dramatically improved Will continue Zosyn and stopped Vanc negative nasal swab Discharge in February reports a video swallow was obtained showing widespread aspiration. Initial EKG with some st depressions in the anterolateral leads which have resolved on repeat with improvement in heart rate. Initial troponin was negative Blood PT OT evaluation (2) Acute respiratory failure with hypoxia: Likely secondary to aspiration as above Continue to titrate O2 , improving Duonebs (3) CAD (coronary artery disease): Continue ASA (4) Cardiac pacemaker: noted (5) SANTY (acute kidney injury): Creat 1.5 on admission, baseline 1.17, improved to 1.3 NSS @ 100 ml (6) Elevated bilirubin: Bili 1.4, direct bili 0.4, alk phos also elevated at 121, improved Abdominal exam benign normal US galbladder (7) DVT prophylaxis: heparin subq Admission and Anticipated Discharge Date Admission Date: August 14, 2020 Subjective Patient remains pleasantly confused he is in much better condition when he initially presented he is able to eat some food without consistent or considerable aspiration Review of Systems Review of Systems: Unobtainable due to cognitive status Physical Exam Physical Exam: The patient appeared confused but following commands Vital signs as documented. Head exam is normocephalic atraumatic no scleral icterus Neck is without JVD, thyromegaly, or carotid bruits. Lungs are coarse on the right lower lobe Cardiac exam, Rhythm is regular.. Systolic ejection murmur Abdominal exam reveals normal bowel sounds, soft non tender, no masses Extremities are nonedematous and both pedal pulses are present Neurologic exam is alert and does follow commands but is impulsive at times Skin is without bruises or rashes Psychologically is with concerns for dementia PG Care Time/CCT Total # of Minutes Spent Total Time Spent with Patient: Total time spent is greater than 50% in coordination of care (as documented) at patient's floor/unit and/or counseling patient: Coding Level of Care Code 09432 Subseq Hosp Care Lvl 2 Diagnoses Sepsis A41.9 Acute respiratory failure with hypoxia J96.01 CAD (coronary artery disease) I25.10 Cardiac pacemaker Z95.0 SANTY (acute kidney injury) N17.9 Elevated bilirubin R17 DVT prophylaxis Z29.9
[2020-08-16] MEDS ORDERED: guaiFENesin/DEXTROM SYRUP 100MG/10MG 5ML UDC PO PRN (18:04)
[2020-08-17] MEDS: PIPERACILLIN/TAZOBACTAM 3.375 GM in DEXTROSE 5% 100 ML IV SCH ×3 (02:30→19:06)
--- NOTE | 2020-08-17 08:05 | Hospitalist Progress Note ---
Date of Service August 17, 2020 Assessment & Plan (1) Sepsis: resolved Possibly secondary to aspiration pneumonia as patient has a history of aspiration CXR showing subtle interstitial thickening chronic vs acute inflammatory process. No consolidation or failure. Lactic was 3.7, 2.7 on recheck. Leukocytosis 17.9. Procalcitonin 1.66 dramatically improved Will continue Zosyn and stopped Vanc negative nasal swab Discharge in February reports a video swallow was obtained showing widespread aspiration. He is on he is to swallow food and nectar thick liquids Initial EKG with some st depressions in the anterolateral leads which have resolved on repeat with improvement in heart rate. Initial troponin was negative PT OT evaluation commending SNF at time of discharge I left a message for his family regarding the same (2) Acute respiratory failure with hypoxia: Resolving Continue to titrate O2 , improving Duonebs (3) CAD (coronary artery disease): Continue ASA (4) Cardiac pacemaker: noted (5) SANTY (acute kidney injury): Creat 1.5 on admission, baseline 1.17, improved to 1.3 NSS @ 100 ml (6) Elevated bilirubin: Bili 1.4, direct bili 0.4, alk phos also elevated at 121, improved Abdominal exam benign normal US galbladder (7) DVT prophylaxis: heparin subq Admission and Anticipated Discharge Date Admission Date: August 14, 2020 Subjective Patient remains pleasantly confused he reportedly was able to feed himself today. Physical therapy is recommending SNF for subacute therapy following this hospital stay. I did phone his family member Adenike left a message on her answering machine 08/17/2020 Review of Systems Review of Systems: Unobtainable due to cognitive status Physical Exam Physical Exam: The patient appeared confused but following commands Vital signs as documented. Head exam is normocephalic atraumatic no scleral icterus Neck is without JVD, thyromegaly, or carotid bruits. Lungs are coarse on the right lower lobe Cardiac exam, Rhythm is regular.. Systolic ejection murmur Abdominal exam reveals normal bowel sounds, soft non tender, no masses Extremities are nonedematous and both pedal pulses are present Neurologic exam is alert and does follow commands but is impulsive at times Skin is without bruises or rashes Psychologically is with concerns for dementia Results & Data Results & Data ([facility]) Vital Signs (Past 12 Hours) Vital Signs Temp Pulse Resp BP Pulse Ox 08/17/20 07:00 98.4 F 76 20 164/78 H 93 PG Care Time/CCT Total # of Minutes Spent Total Time Spent with Patient: Total time spent is greater than 50% in coordination of care (as documented) at patient's floor/unit and/or counseling patient: Coding Level of Care Code 65121 Subseq Hosp Care Lvl 2 Diagnoses Sepsis A41.9 Acute respiratory failure with hypoxia J96.01 CAD (coronary artery disease) I25.10 Cardiac pacemaker Z95.0 SANTY (acute kidney injury) N17.9 Elevated bilirubin R17 DVT prophylaxis Z29.9
[2020-08-17] MEDS: HEPARIN SOD 5,000 UNIT/0.5 ML VIAL SQ SCH ×2 (08:22→20:07)
[2020-08-17] MEDS: PSYLLIUM 58.6% POWDER PACKET PO SCH (08:23)
[2020-08-17] MEDS: ASPIRIN 81 MG ECTAB PO SCH (08:23)
[2020-08-17] MEDS: PANTOprazole 40 MG TAB PO SCH (08:23)
[2020-08-17] MEDS: SODIUM CHLORIDE 0.9% 1000ML 1,000 ML IV SCH (08:29)
[2020-08-17 09:41] LABS: Est GFR (African American) 71.5; Est GFR (Non-African American) 61.7
[2020-08-17] MEDS ORDERED: Nursing to Pharmacy Communication SCH (12:15)
[2020-08-18] MEDS: PIPERACILLIN/TAZOBACTAM 3.375 GM in DEXTROSE 5% 100 ML IV SCH ×3 (02:28→19:46)
[2020-08-18 06:59] LABS: Creatinine Clr Calc Pharmacy 53.4 ml/min; Est GFR (African American) 92.4; Est GFR (Non-African American) 79.8
[2020-08-18] MEDS: ASPIRIN 81 MG ECTAB PO SCH (08:12)
[2020-08-18] MEDS: PANTOprazole 40 MG TAB PO SCH (08:12)
[2020-08-18] MEDS: PSYLLIUM 58.6% POWDER PACKET PO SCH (08:12)
[2020-08-18] MEDS: HEPARIN SOD 5,000 UNIT/0.5 ML VIAL SQ SCH ×2 (08:12→20:42)
--- NOTE | 2020-08-18 16:14 | Hospitalist Progress Note ---
Date of Service August 18, 2020 Assessment & Plan (1) Sepsis: resolved Possibly secondary to aspiration pneumonia as patient has a history of aspiration CXR showing subtle interstitial thickening chronic vs acute inflammatory process. No consolidation or failure. Lactic was 3.7, 2.7 on recheck. Leukocytosis 17.9. Procalcitonin 1.66 dramatically improved Blood and urine cx neg Will continue Zosyn and stopped Vanc 08/16 after negative nasal swab Discharge in February reports a video swallow was obtained showing widespread aspiration. Diet is nectar thick liquids Seen by ST, recs are for improving oral care as pt is not a candidate for further ST interventions and has aspiration with all levels of PO intake Initial EKG with some st depressions in the anterolateral leads which have resolved on repeat with improvement in heart rate. Initial troponin was negative PT OT evaluation commending SNF at time of discharge I left a message for his family regarding the same (2) Acute respiratory failure with hypoxia: Resolving Continue to titrate O2 , improving Duonebs (3) CAD (coronary artery disease): Continue ASA (4) Cardiac pacemaker: noted (5) SANTY (acute kidney injury): Creat 1.5 on admission, baseline 1.17, improved (6) Elevated bilirubin: Bili 1.4, direct bili 0.4, alk phos also elevated at 121, improved Abdominal exam benign normal US galbladder (7) DVT prophylaxis: heparin subq Admission and Anticipated Discharge Date Admission Date: August 14, 2020 Subjective Pt is feeling overall better today. No SOB. Tolerating PO. Pt denies fever, chest pain, abd pain, n/v/c/d, LE pain or swelling. Review of Systems Review of Systems: Pertinent positives and negatives reviewed in HPI--all others negative Physical Exam Constitutional: WD/WN, vitals as above Eyes: normal visual irving by confrontation and + anicteric sclerae Neck: normal visual inspection and trachea midline Respiratory: normal respiratory effort; no respiratory distress Auscultation: + crackles (R base); no wheezes Cardiovascular: Rate/Rhythm: regular rate and regular rhythm Gastrointestinal (Abdomen): Inspection/Auscultation: abdomen not distended Percussion/Palpation: abdomen soft; abdomen nontender Musculoskeletal: Head/Neck/Chest: normocephalic and head atraumatic negative for edema, peripheral pulses intact Skin: no rashes, warm and dry Neurologic: awake; not confused Speech / Cognition: normal speech Psychiatric: Orientation: alert and cooperative Results & Data Results & Data ([facility]) Vital Signs (Past 12 Hours) Vital Signs Temp Pulse Resp BP BP Pulse Ox 08/18/20 15:15 37.3 C 68 18 137/66 95 08/18/20 07:17 36.5 C 68 20 146/67 H 90 08/18/20 06:14 94 H 22 91 PG Care Time/CCT Total # of Minutes Spent Total Time Spent with Patient: Total time spent is greater than 50% in coordinat ion of care (as documented) at patient's floor/unit and/or counseling patient: Coding Level of Care Code 38547 Subseq Hosp Care Lvl 3 Diagnoses Sepsis A41.9 Acute respiratory failure with hypoxia J96.01 CAD (coronary artery disease) I25.10 Cardiac pacemaker Z95.0 SANTY (acute kidney injury) N17.9 Elevated bilirubin R17 DVT prophylaxis Z29.9
[2020-08-19] MEDS: PIPERACILLIN/TAZOBACTAM 3.375 GM in DEXTROSE 5% 100 ML IV SCH ×2 (03:16→12:25)
[2020-08-19] MEDS: PANTOprazole 40 MG TAB PO SCH (07:44)
[2020-08-19] MEDS: HEPARIN SOD 5,000 UNIT/0.5 ML VIAL SQ SCH ×2 (07:44→20:19)
[2020-08-19] MEDS: ASPIRIN 81 MG ECTAB PO SCH (07:44)
[2020-08-19] MEDS: PSYLLIUM 58.6% POWDER PACKET PO SCH (07:44)
[2020-08-19 07:58] LABS: Creatinine Clr Calc Pharmacy 54.1 ml/min; Est GFR (African American) 92.9; Est GFR (Non-African American) 80.2
[2020-08-19] MEDS: DOXYCYCLINE HYCLATE 100 MG CAP PO SCH ×2 (12:59→20:19)
--- NOTE | 2020-08-19 14:06 | Hospitalist Progress Note ---
Date of Service August 19, 2020 Assessment & Plan (1) Sepsis: resolved Possibly secondary to aspiration pneumonia as patient has a history of aspiration CXR showing subtle interstitial thickening chronic vs acute inflammatory process. No consolidation or failure. Lactic was 3.7, 2.7 on recheck. Leukocytosis 17.9. Procalcitonin 1.66 dramatically improved Blood and urine cx neg Will continue Zosyn and stopped Vanc 08/16 after negative nasal swab Zosyn to doxy 100mg BID on 08/19 Discharge in February reports a video swallow was obtained showing widespread aspiration. Diet is nectar thick liquids Seen by ST, recs are for improving oral care as pt is not a candidate for further ST interventions and has aspiration with all levels of PO intake Per nursing, is tolerating PO without issue, however does appear to be coughing/choking during my exam today--?? saliva vs reflux?? Initial EKG with some st depressions in the anterolateral leads which have resolved on repeat with improvement in heart rate. Initial troponin was negative PT OT evaluation recs for SNF at time of discharge, family has d/w CM and agreed to this (2) Acute respiratory failure with hypoxia: Resolving Continue to titrate O2 , improving Duonebs (3) CAD (coronary artery disease): Continue ASA (4) Cardiac pacemaker: noted (5) SANTY (acute kidney injury): Creat 1.5 on admission, baseline 1.17, improved (6) Elevated bilirubin: Bili 1.4, direct bili 0.4, alk phos also elevated at 121, improved Abdominal exam benign normal US galbladder (7) DVT prophylaxis: heparin subq Admission and Anticipated Discharge Date Admission Date: August 14, 2020 Subjective Pt again notes feeling better. No SOB. Tolerating PO. Pt denies fever, chest pain, abd pain, n/v/c/d, LE pain or swelling. Pt is coughing quite extensively when I entered the room. He states this is usual for him and that his doctor told him "it is [place] This happened a second time during our conversation. Nursing reports that there was an aid and also she was in with pt during breakfast and pt had no issue with coughing/choking for that meal. She states he has done fine with eating. Review of Systems Review of Systems: Pertinent positives and negatives reviewed in HPI--all others negative Physical Exam Constitutional: WD/WN, vitals as above Eyes: normal visual irving by confrontation and + anicteric sclerae Neck: normal visual inspection and trachea midline Respiratory: normal respiratory effort and + cough (prolonged coughing x2); no respiratory distress Auscultation: + crackles (R base); no wheezes Cardiovascular: Rate/Rhythm: regular rate and regular rhythm Gastrointestinal (Abdomen): Inspection/Auscultation: abdomen not distended Percussion/Palpation: abdomen soft; abdomen nontender Musculoskeletal: Head/Neck/Chest: normocephalic and head atraumatic Skin: no rashes, warm and dry Neurologic: awake; not confused Speech / Cognition: normal speech Psychiatric: Orientation: alert and cooperative Results & Data Results & Data ([facility]) Vital Signs (Past 12 Hours) Vital Signs Temp Pulse Resp BP Pulse Ox 08/19/20 07:08 37.1 C 58 L 18 166/90 H 95 PG Care Time/CCT Total # of Minutes Spent Total Time Spent with Patient: Total time spent is greater than 50% in coordination of care (as documented) at patient's floor/unit and/or counseling patient: Coding Level of Care Code 59473 Subseq Hosp Care Lvl 3 Diagnoses Sepsis A41.9 Acute respiratory failure with hypoxia J96.01 CAD (coronary artery disease) I25.10 Cardiac pacemaker Z95.0 SANTY (acute kidney injury) N17.9 Elevated bilirubin R17 DVT prophylaxis Z29.9
[2020-08-20] MEDS: ASPIRIN 81 MG ECTAB PO SCH (07:37)
[2020-08-20] MEDS: PANTOprazole 40 MG TAB PO SCH (07:37)
[2020-08-20] MEDS: DOXYCYCLINE HYCLATE 100 MG CAP PO SCH ×2 (07:37→19:45)
[2020-08-20] MEDS: HEPARIN SOD 5,000 UNIT/0.5 ML VIAL SQ SCH ×2 (07:37→19:44)
[2020-08-20] MEDS: PSYLLIUM 58.6% POWDER PACKET PO SCH (07:38)
[2020-08-20] MEDS ORDERED: Nursing to Pharmacy Communication SCH (07:45)
[2020-08-20 08:28] LABS: Creatinine Clr Calc Pharmacy 61.1 ml/min; Est GFR (African American) 97.7; Est GFR (Non-African American) 84.3
--- NOTE | 2020-08-20 16:12 | Hospitalist Progress Note ---
Date of Service August 20, 2020 Assessment & Plan (1) Sepsis: resolved Possibly secondary to aspiration pneumonia as patient has a history of aspiration CXR showing subtle interstitial thickening chronic vs acute inflammatory process. No consolidation or failure. Lactic was 3.7, 2.7 on recheck. Leukocytosis 17.9. Procalcitonin 1.66 dramatically improved Blood and urine cx neg Will continue Zosyn and stopped Vanc 08/16 after negative nasal swab Zosyn to doxy 100mg BID on 08/19 Discharge in February reports a video swallow was obtained showing widespread aspiration. Diet is nectar thick liquids Seen by ST, recs are for improving oral care as pt is not a candidate for further ST interventions and has aspiration with all levels of PO intake Per nursing, is tolerating PO without issue, however does appear to be coughing/choking during my exam today--?? saliva vs reflux?? Initial EKG with some st depressions in the anterolateral leads which have resolved on repeat with improvement in heart rate. Initial troponin was negative PT OT evaluation recs for SNF at time of discharge, family has d/w CM and agreed to this (2) Acute respiratory failure with hypoxia: Resolving Continue to titrate O2 , improving Duonebs (3) CAD (coronary artery disease): Continue ASA (4) Cardiac pacemaker: noted (5) SANTY (acute kidney injury): Creat 1.5 on admission, baseline 1.17, improved (6) Elevated bilirubin: Bili 1.4, direct bili 0.4, alk phos also elevated at 121, improved Abdominal exam benign normal US galbladder (7) DVT prophylaxis: heparin subq Ongoing CM placement issues Admission and Anticipated Discharge Date Admission Date: August 14, 2020 Subjective Pt is without new concerns today. Ongoing placement issues. No issues from nursing. Pt denies fever, SOB, chest pain, abd pain, n/v/c/d, LE pain or swelling. Review of Systems Review of Systems: Pertinent positives and negatives reviewed in HPI--all others negative Physical Exam Constitutional: WD/WN, vitals as above Eyes: normal visual irving by confrontation and + anicteric sclerae Neck: normal visual inspection and trachea midline Respiratory: normal respiratory effort; no respiratory distress Auscultation: no crackles and no wheezes Cardiovascular: Rate/Rhythm: regular rate and regular rhythm Gastrointestinal (Abdomen): Inspection/Auscultation: abdomen not distended Percussion/Palpation: abdomen soft; abdomen nontender Musculoskeletal: Head/Neck/Chest: normocephalic and head atraumatic Skin: no rashes, warm and dry Neurologic: awake; not confused Speech / Cognition: normal speech Psychiatric: Orientation: alert and cooperative Results & Data Results & Data ([facility]) Vital Signs (Past 12 Hours) Vital Signs Temp Pulse Resp BP BP Pulse Ox 08/20/20 14:53 36.6 C 61 18 145/64 H 93 08/20/20 07:47 36.7 C 79 18 141/70 H 90 PG Care Time/CCT Total # of Minutes Spent Total Time Spent with Patient: Total time spent is greater than 50% in coordination of care (as documented) at patient's floor/unit and/or counseling patient: Coding Level of Care Code 62167 Subseq Hosp Care Lvl 2 Diagnoses Sepsis A41.9 Acute respiratory failure with hypoxia J96.01 CAD (coronary artery disease) I25.10 Cardiac pacemaker Z95.0 SANTY (acute kidney injury) N17.9 Elevated bilirubin R17 DVT prophylaxis Z29.9
[2020-08-20] MEDS ORDERED: PSYLLIUM 58.6% POWDER PACKET PO SCH (21:00)
[2020-08-21] MEDS: PANTOprazole 40 MG TAB PO SCH (07:54)
[2020-08-21] MEDS: HEPARIN SOD 5,000 UNIT/0.5 ML VIAL SQ SCH (07:54)
[2020-08-21] MEDS: DOXYCYCLINE HYCLATE 100 MG CAP PO SCH (07:54)
[2020-08-21] MEDS: ASPIRIN 81 MG ECTAB PO SCH (07:54)
--- NOTE | 2020-08-21 12:03 | Discharge Summary ---
Date of Service August 21, 2020 Admission HPI Per Admitting Provider Mr. Ames presents with sepsis possibly secondary to an aspiration even of which he has a history. He is unable to give me much of a history, cannot tell me where he is. Per the ED he came in from his H with acute respiratory failure, vomiting, fevers that have evolved rapidly. Patient denies any discomfort though he is coughing during my exam and some questions he did not respond to, unclear whether he was having trouble hearing me or just didn't want to/couldn't answer my question. Denies aches, chills, chest pain, dyspnea, n/v/d, abdominal pain Pmhx: per outpatient notes: history of dysphagia, cardiac pacemaker, NSTEMI with third degree heart block in 2018, CAD, BPH Social: from personal long-term Family: non contributory due to advanced age Principal Diagnosis aspiration pneumonia, acute hypoxic respiratory failure Discharge Exam Constitutional + ill appearing Eyes PERRL, conjunctivae normal, anicteric sclerae ENMT external ear and nose normal, oropharynx normal Neck trachea midline, no thyromegaly Respiratory normal respiratory effort Auscultation: + diminished lung sounds and + crackles Cardiovascular Rate/Rhythm: regular rate Gastrointestinal (Abdomen) normal bowel sounds, soft, nontender, no hepatosplenomegaly Musculoskeletal Extremities: extremities normal to inspection Skin no rashes, warm and dry Neurologic CN's II-XI intact bilaterally Psychiatric Orientation: alert Discharge Data Allergies Allergy/AdvReac Type Severity Reaction Status Date / Time Penicillins AdvReac Unknown VOMITING Unverified 08/14/20 15:05 Consultations 08/14/20 14:31 ED Decision to Admit Stat 08/14/20 17:22 Consult Case Management - Discharge Planning Routine Ordered Studies 08/14/20 17:22 US gallbladder Stat Hospital Course (1) Sepsis: resolved Possibly secondary to aspiration pneumonia as patient has a history of aspiration CXR showing subtle interstitial thickening chronic vs acute inflammatory process. No consolidation or failure. Lactic was 3.7, 2.7 on recheck. Leukocytosis 17.9. Procalcitonin 1.66 dramatically improved Blood and urine cx neg Will continue Zosyn and stopped Vanc 08/16 after negative nasal swab Zosyn to doxy 100mg BID on 08/19 Discharge in February reports a video swallow was obtained showing widespread aspiration. Diet is nectar thick liquids Seen by ST, recs are for improving oral care as pt is not a candidate for further ST interventions and has aspiration with all levels of PO intake Per nursing, is tolerating PO without issue, however does appear to be coughing/choking during my exam today--?? saliva vs reflux?? Initial EKG with some st depressions in the anterolateral leads which have resolved on repeat with improvement in heart rate. Initial troponin was negative PT OT evaluation recs for SNF at time of discharge, family has d/w CM and agreed to this (2) Acute respiratory failure with hypoxia: Resolving Continue to titrate O2 , improving Duonebs (3) CAD (coronary artery disease): Continue ASA (4) Cardiac pacemaker: noted (5) SANTY (acute kidney injury): Creat 1.5 on admission, baseline 1.17, improved (6) Elevated bilirubin: Bili 1.4, direct bili 0.4, alk phos also elevated at 121, improved Abdominal exam benign normal US galbladder (7) DVT prophylaxis: heparin subq Ongoing CM placement issues Total Time Total Time Spent Total Time Spent (In Minutes): 35 minutes Total Time Includes: Examination of the Patient, Discharge Planning and Medication Reconciliation Discharge Plan Discharge Items Patient Disposition: Transfer Inpatient Rehab Fac Reason For Visit: SEPSIS Discharge Diagnosis: aspiration pneumonia, acute hypoxic respiratory faiure Activity: Resume your previous activity Non-emergency contact: Primary Care Provider Call non-emergency contact if: you have any medication questions and your symptoms worsen Follow-up/Referrals: Yeny Sampson CRNP [Primary Care Provider] - Diet: Heart Healthy Addtl Attending Provider Instructions: continue rehab Pending Studies at Discharge: No Stand-Alone Forms: [facility] Skilled Items Patient informed of condition?: Yes DNR: Yes Discharge Level of Care: Acute rehab Communicable Disease: No Discharge Prognosis: Stable Urinary Catheter: No Medications and DC Order Prescriptions: New doxycycline hyclate 100 mg Capsule 100 mg PO BID Qty: 20 RF: 0 ipratropium-albuterol 0.5 mg-3 mg(2.5 mg base)/3 mL Solution For Nebulization 3 ml NEB QID PRN (Reason: shortness of breath) Qty: 1 RF: 0 dextromethorphan-guaifenesin 10-100 mg/5 mL Syrup 5 ml PO Q6H MDD 20ml PRN (Reason: cough) Qty: 15 RF: 0 aspirin 81 mg Tablet,Delayed Release (Dr/Ec) 81 mg PO QAM Qty: 30 RF: 0 heparin, porcine (PF) 5,000 unit/0.5 mL Syringe 5,000 unit subcut Q12 Qty: 10 RF: 0 Continued Metamucil 3.4 gram/5.4 gram powder 1 tbs PO DAILY Qty: 660 RF: 1 pantoprazole 40 mg tablet,delayed release (DR/EC) 40 mg PO QAM Qty: 30 RF: 4 Viberzi 100 mg tablet 100 mg PO BID Qty: 60 RF: 2 carbamide peroxide [Debrox] 6.5 % drops 5 drops OT .COMPLEX 4 Days Qty: 15 RF: 2 (DME) Gold Bro Lotion Qty: 1 RF: 5 aspirin 81 mg Tablet,Delayed Release (Dr/Ec) 81 mg PO QAM Qty: 1 RF: 0 Discharge Orders: Discharge Order (Routine); Ordered 08/21/20 Ordered By: Geoffrey Celeste Admission Data Admit Date/Time: 08/14/20 15:16 Attending Provider: Geoffrey Celeste Admit Provider: Juan Diego Gutierrez Primary Care Provider: Yeny Sampson Other Providers: Juan Diego Gutierrez ; [facility] Coding Level of Care Code D/C Day Management >30 mins Diagnoses Sepsis A41.9 Acute respiratory failure with hypoxia J96.01 CAD (coronary artery disease) I25.10 Cardiac pacemaker Z95.0 SANTY (acute kidney injury) N17.9 Elevated bilirubin R17 DVT prophylaxis Z29.9
== END 2020-08-21 17:35 | DRG 871 ==
LOC: ED 11:49 → 2S 15:16 → SUATTDRO 15:16 → 2S 16:06 → 2W 08-15 11:21 → 2N 08-15 16:35